=== PATIENT | female | born 1950 | race Hispanic/Latino ===

== ENCOUNTER → 2018-07-04 | Outpatient (CLI) | payer MEDICARE ==
[~2018-07-04] MED LIST: ASPI-1005 PO; FOLI-114 PO; GLYB1.253 PO; LISI-617 PO; METF-445 PO; METO25 PO; METO5TAB87 PO; SIMV20TA6 PO
== END | disposition home or self-care (01) ==
LOC: RAH 11:32
PROVIDERS: ATTEND Family Medicine
DX: I65.23 Occlusion and stenosis of bilateral carotid arteries (principal); R42 Dizziness and giddiness
CPT/HCPCS: 93880

== ENCOUNTER → 2020-01-22 | Outpatient (CLI) | payer MEDICARE ==
[~2020-01-22] MED LIST changes: +HONEY 1 APPL/ML TUBE TP ONE; +LIDOCAINE HCL 4% LTA SOL 4 ML VIAL TP ONE; +SIMV-43 PO; -SIMV20TA6 PO
[2020-01-22 13:05] VITALS: BP 126/63
== END | disposition home or self-care (01) ==
LOC: WHH 10:50
PROVIDERS: ATTEND Surgery
DX: E11.622 Type 2 diabetes mellitus with other skin ulcer (principal); I83.013 Varicose veins of right lower extremity with ulcer of ankle; I70.233 Atherosclerosis of native arteries of right leg with ulceration of ankle; L97.312 Non-pressure chronic ulcer of right ankle with fat layer exposed; I83.023 Varicose veins of left lower extremity with ulcer of ankle; I70.243 Atherosclerosis of native arteries of left leg with ulceration of ankle; L97.321 Non-pressure chronic ulcer of left ankle limited to breakdown of skin; E11.51 Type 2 diabetes mellitus with diabetic peripheral angiopathy without gangrene; I10 Essential (primary) hypertension; E78.5 Hyperlipidemia, unspecified; Z86.73 Personal history of transient ischemic attack (TIA), and cerebral infarction without residual deficits; Z98.49 Cataract extraction status, unspecified eye
CPT/HCPCS: 11042

== ENCOUNTER → 2020-01-29 | Outpatient (CLI) | payer MEDICARE ==
[~2020-01-29] MED LIST changes: -HONEY 1 APPL/ML TUBE TP ONE; -LIDOCAINE HCL 4% LTA SOL 4 ML VIAL TP ONE; +LIDOCAINE/PRILOCAINE CREAM 5GM TUBE TP ONE
[2020-01-29 14:43] VITALS: BP 144/68
== END | disposition home or self-care (01) ==
LOC: WHH 10:15
PROVIDERS: ATTEND Surgery
DX: E11.622 Type 2 diabetes mellitus with other skin ulcer (principal); I83.013 Varicose veins of right lower extremity with ulcer of ankle; I70.233 Atherosclerosis of native arteries of right leg with ulceration of ankle; L97.312 Non-pressure chronic ulcer of right ankle with fat layer exposed; I83.023 Varicose veins of left lower extremity with ulcer of ankle; I70.243 Atherosclerosis of native arteries of left leg with ulceration of ankle; L97.821 Non-pressure chronic ulcer of other part of left lower leg limited to breakdown of skin; E11.51 Type 2 diabetes mellitus with diabetic peripheral angiopathy without gangrene; I10 Essential (primary) hypertension; E78.5 Hyperlipidemia, unspecified; Z86.73 Personal history of transient ischemic attack (TIA), and cerebral infarction without residual deficits; Z98.49 Cataract extraction status, unspecified eye
CPT/HCPCS: A6021; G0463; J3490; 99214

== ENCOUNTER → 2020-02-05 | Outpatient (CLI) | payer MEDICARE ==
[~2020-02-05] MED LIST changes: +LIDOCAINE HCL 4% LTA SOL 4 ML VIAL TP ONE; -LIDOCAINE/PRILOCAINE CREAM 5GM TUBE TP ONE
[2020-02-05 12:05] VITALS: BP 105/52
== END | disposition home or self-care (01) ==
LOC: WHH 10:15
PROVIDERS: ATTEND Surgery
DX: E11.622 Type 2 diabetes mellitus with other skin ulcer (principal); I83.013 Varicose veins of right lower extremity with ulcer of ankle; I70.233 Atherosclerosis of native arteries of right leg with ulceration of ankle; L97.312 Non-pressure chronic ulcer of right ankle with fat layer exposed; I83.023 Varicose veins of left lower extremity with ulcer of ankle; I70.243 Atherosclerosis of native arteries of left leg with ulceration of ankle; L97.821 Non-pressure chronic ulcer of other part of left lower leg limited to breakdown of skin; E11.51 Type 2 diabetes mellitus with diabetic peripheral angiopathy without gangrene; I10 Essential (primary) hypertension; E78.5 Hyperlipidemia, unspecified; Z86.73 Personal history of transient ischemic attack (TIA), and cerebral infarction without residual deficits; Z98.49 Cataract extraction status, unspecified eye
CPT/HCPCS: 11042; A6022; A6197

== ENCOUNTER → 2020-02-06 | Outpatient (CLI) | payer MEDICARE ==
[~2020-02-06] MED LIST changes: -LIDOCAINE HCL 4% LTA SOL 4 ML VIAL TP ONE
[2020-02-06 09:23] VITALS: BP 108/62
== END | disposition home or self-care (01) ==
LOC: WHH 08:15
PROVIDERS: ATTEND Surgery
DX: E11.622 Type 2 diabetes mellitus with other skin ulcer (principal); I83.013 Varicose veins of right lower extremity with ulcer of ankle; I70.233 Atherosclerosis of native arteries of right leg with ulceration of ankle; L97.311 Non-pressure chronic ulcer of right ankle limited to breakdown of skin; E11.51 Type 2 diabetes mellitus with diabetic peripheral angiopathy without gangrene; I10 Essential (primary) hypertension; E78.5 Hyperlipidemia, unspecified; Z86.73 Personal history of transient ischemic attack (TIA), and cerebral infarction without residual deficits; Z98.49 Cataract extraction status, unspecified eye
CPT/HCPCS: 93923

== ENCOUNTER → 2020-02-10 | Outpatient (CLI) | payer MEDICARE, OTHER ==
[~2020-02-10] MED LIST changes: +ASPI-1443 PO; +ATOR10TA69 PO; +EXEN2PEN SQ; +GABA300C PO; +IBUP-2070 PO; +INSU100I21 SQ; +LEVO500T2 PO; +LOSA50TA64 PO; +METF-446 PO; +PIOG45TA64 PO; +RIVA2.5T PO; +TRAM50TA4 PO
== END | disposition home or self-care (01) ==
LOC: WHH 13:00
PROVIDERS: ATTEND Surgery
DX: E11.622 Type 2 diabetes mellitus with other skin ulcer (principal); I83.013 Varicose veins of right lower extremity with ulcer of ankle; L97.311 Non-pressure chronic ulcer of right ankle limited to breakdown of skin; I83.023 Varicose veins of left lower extremity with ulcer of ankle; L97.321 Non-pressure chronic ulcer of left ankle limited to breakdown of skin; E11.621 Type 2 diabetes mellitus with foot ulcer; I83.015 Varicose veins of right lower extremity with ulcer other part of foot; L97.511 Non-pressure chronic ulcer of other part of right foot limited to breakdown of skin; E11.51 Type 2 diabetes mellitus with diabetic peripheral angiopathy without gangrene; I10 Essential (primary) hypertension; E78.5 Hyperlipidemia, unspecified; Z98.49 Cataract extraction status, unspecified eye; Z86.73 Personal history of transient ischemic attack (TIA), and cerebral infarction without residual deficits
CPT/HCPCS: 93922

== ENCOUNTER → 2020-02-19 | Outpatient (CLI) | payer MEDICARE, OTHER ==
[~2020-02-19] MED LIST changes: +GADODIAMIDE 10 MMOL/20 ML VIAL IV ONE; +HONEY 1 APPL/ML TUBE TP ONE; +LIDOCAINE HCL 2% JELLY 5 ML TP ONE
[2020-02-19 13:51] VITALS: BP 120/58
== END | disposition home or self-care (01) ==
LOC: WHH 10:30
PROVIDERS: ATTEND Surgery
DX: E11.622 Type 2 diabetes mellitus with other skin ulcer (principal); I83.013 Varicose veins of right lower extremity with ulcer of ankle; I70.233 Atherosclerosis of native arteries of right leg with ulceration of ankle; L97.312 Non-pressure chronic ulcer of right ankle with fat layer exposed; I83.023 Varicose veins of left lower extremity with ulcer of ankle; I70.243 Atherosclerosis of native arteries of left leg with ulceration of ankle; L97.321 Non-pressure chronic ulcer of left ankle limited to breakdown of skin; E11.621 Type 2 diabetes mellitus with foot ulcer; L97.511 Non-pressure chronic ulcer of other part of right foot limited to breakdown of skin; L98.491 Non-pressure chronic ulcer of skin of other sites limited to breakdown of skin; E11.51 Type 2 diabetes mellitus with diabetic peripheral angiopathy without gangrene; I10 Essential (primary) hypertension; E78.5 Hyperlipidemia, unspecified; Z98.49 Cataract extraction status, unspecified eye; Z86.73 Personal history of transient ischemic attack (TIA), and cerebral infarction without residual deficits
CPT/HCPCS: 11042; A6021; A9579

== ENCOUNTER → 2020-02-20 | Outpatient (CLI) | payer OTHER ==
[~2020-02-20] MED LIST changes: -ASPI-1443 PO; -GABA300C PO; -HONEY 1 APPL/ML TUBE TP ONE; -IBUP-2070 PO; -LIDOCAINE HCL 2% JELLY 5 ML TP ONE; -RIVA2.5T PO
== END | disposition home or self-care (01) ==
LOC: RAH 09:21
PROVIDERS: ATTEND Surgery
DX: I83.018 Varicose veins of right lower extremity with ulcer other part of lower leg (principal); E11.621 Type 2 diabetes mellitus with foot ulcer; L97.819 Non-pressure chronic ulcer of other part of right lower leg with unspecified severity; L97.519 Non-pressure chronic ulcer of other part of right foot with unspecified severity
CPT/HCPCS: 73720; A9579

== ENCOUNTER → 2020-02-26 | Outpatient (CLI) | payer MEDICARE, OTHER ==
[~2020-02-26] MED LIST changes: -ASPI-1005 PO; -ATOR10TA69 PO; -EXEN2PEN SQ; -FOLI-114 PO; -GADODIAMIDE 10 MMOL/20 ML VIAL IV ONE; -GLYB1.253 PO; -INSU100I21 SQ; -LEVO500T2 PO; +LIDOCAINE HCL 2% JELLY 5 ML TP ONE; -LISI-617 PO; -LOSA50TA64 PO; -METF-445 PO; -METF-446 PO; -METO25 PO; -METO5TAB87 PO; -PIOG45TA64 PO; -SIMV-43 PO; -TRAM50TA4 PO
[2020-02-26 12:15] VITALS: BP 157/88; PULSE 78; RESP 18; TEMP 98.9
== END | disposition home or self-care (01) ==
LOC: WHH 10:30
PROVIDERS: ATTEND Surgery
DX: E11.622 Type 2 diabetes mellitus with other skin ulcer (principal); I83.013 Varicose veins of right lower extremity with ulcer of ankle; I70.233 Atherosclerosis of native arteries of right leg with ulceration of ankle; L97.311 Non-pressure chronic ulcer of right ankle limited to breakdown of skin; E11.621 Type 2 diabetes mellitus with foot ulcer; I83.015 Varicose veins of right lower extremity with ulcer other part of foot; I70.238 Atherosclerosis of native arteries of right leg with ulceration of other part of lower leg; L97.512 Non-pressure chronic ulcer of other part of right foot with fat layer exposed; E11.51 Type 2 diabetes mellitus with diabetic peripheral angiopathy without gangrene; I10 Essential (primary) hypertension; E78.5 Hyperlipidemia, unspecified; Z86.73 Personal history of transient ischemic attack (TIA), and cerebral infarction without residual deficits; Z98.49 Cataract extraction status, unspecified eye
CPT/HCPCS: 11042; A6196

== ENCOUNTER 2020-03-02 15:40 | Inpatient (IN) | payer OTHER ==
[~2020-03-02] VITALS: Ht 157.5 cm; Wt 69.9 kg
[2020-03-02] MEDS ORDERED: ZOSYN 3.375GM+NS 50ML 50 ML IV ONE (16:30)
[2020-03-02] MEDS ORDERED: SODIUM CHLORIDE 0.9% 1000ML 1,000 ML IV ONE (16:30)
[2020-03-02] MEDS ORDERED: VANCOMYCIN 1.5 GM in SODIUM CHLORIDE 0.9% 250 ML IV SCH (18:15)
[2020-03-02] MEDS ORDERED: COMPOUND IV REFRIGERATED 1 EACH IVSOLN MISC PRN (18:15)
[2020-03-02] MEDS ORDERED: VANCOMYCIN PROTOCOL PER PHARMACY IV SCH (18:15)
[2020-03-02] MEDS ORDERED: GLUCAGON 1MG KIT 1 MG ML IM PRN (18:30)
[2020-03-02] MEDS ORDERED: DEXTROSE 50%-WATER 50 ML DISP.SYRIN IV PRN (18:30)
[2020-03-03] MEDS ORDERED: ZOSYN 3.375GM+NS 50ML 50 ML IV SCH
[2020-03-03] MEDS ORDERED: ZOSYN 3.375GM+NS 50ML 50 ML IV ONE (03:11)
[2020-03-03] MEDS: VANCOMYCIN 1GM+NS 250ML 250 ML IV SCH ×2 (06:00→18:50)
[2020-03-03] MEDS: INSULIN R PO SS1 SQ SCH ×4 (07:30→23:50)
--- NOTE | 2020-03-03 08:30 | NUR ---
ADMISSION . PT AAO X 3 REVIEW PLAN OF CARE AND ORDERS . WOUND TO HER RT FOOT . PICTURES DONE. DRSG DONE TO HER RT FOOT, AND FALL RISK AND CALL LIGHT IN R EACH.
[2020-03-03 09:58] VITALS: BP 140/56; PULSE 87; RESP 17; TEMP 98.6
[2020-03-03] MEDS: HYDROMORPHONE HCL 0.5 MG/0.5 ML ML IVP PRN ×2 (10:49→23:27)
[2020-03-03] MEDS ORDERED: HYDRALAZINE HCL 20 MG/ML VIAL IV PRN (11:30)
[2020-03-03] MEDS ORDERED: LACTULOSE 20 GM/30 ML UDCUP PO PRN (11:30)
[2020-03-03] MEDS ORDERED: LABETALOL 20 MG/4 ML DISP.SYRIN IV PRN (11:30)
[2020-03-03] MEDS ORDERED: ACETAMINOPHEN 325 MG TAB PO PRN (11:30)
[2020-03-03 12:19] VITALS: BP 135/56; PULSE 85; RESP 16; TEMP 97.3
[2020-03-03] MEDS: ZOSYN 3.375GM+NS 50ML 50 ML IV SCH ×2 (13:54→22:38)
--- NOTE | 2020-03-03 15:02 | NUR ---
advised by Anuradha [place] pending MRI report for POC/status determination Addendum: 03/03/20 at 1505 by JOSIE SR RN CM Amended: Links added.
--- NOTE | 2020-03-03 17:05 | NUR ---
[facility] CM spoke to pt's daughter Corinne Laughlin discussed dc plans. Pt is alejandro-ind prior to admission, lives at home with spouse and daughter. Pt has a walker, cane, HH daily for woundcare unable to [employer] company name, goes to [facility] w/Dr Springer every . Denies any other equipments/services. Feels safe to go back home. Agreeable for placement only if necessary, telephone consent obtained ILIANA adela [place]. DC plan to home vs SNF. CM to cont to follow up. Addendum: 03/03/20 at 1709 by JAMIL BECERRA LVN CM Amended: Links added.
[2020-03-03 17:15] VITALS: BP 131/64; PULSE 91; RESP 18; TEMP 98.8
--- NOTE | 2020-03-03 18:39 | NUR ---
CARDIOGIST CONSULT DR. Kumar GIMENEZ CONSULTS FOR PVD
--- NOTE | 2020-03-03 19:00 | NUR ---
DR. DIEHL HERE , FOR RT FOOT ASSESSMENT . REVIEW FOOT .AND SPOKE WITH PT. REGARDING PLAN OF CARE, WILL NEED FOR THE SCRAP CRUSHER . IN PUT OF HER RT FOOT/ LEG CIRCULATION . AND CARE. RISK REVIEW AND QUESTIONS ANSWER . RT FOOT 2ND AND 3RD FOOT . INNER AREA BLACKISH COLOR . NOTED .
[2020-03-03 19:40] VITALS: BP 139/63; PULSE 102; RESP 17; TEMP 98.8
[2020-03-03] MEDS: HEPARIN SODIUM 5000UNIT/ML 1ML VIAL SQ SCH (21:00)
[2020-03-03] MEDS: LEVEMIR PO SCH (21:00)
[2020-03-03 23:46] VITALS: BP 111/72; PULSE 97; RESP 17; TEMP 98
[2020-03-04 03:40] VITALS: BP 127/60; PULSE 84; RESP 17; TEMP 98.1
[2020-03-04] MEDS: ZOSYN 3.375GM+NS 50ML 50 ML IV SCH ×3 (04:32→19:47)
[2020-03-04] MEDS: HYDROMORPHONE HCL 0.5 MG/0.5 ML ML IVP PRN ×3 (05:21→18:27)
[2020-03-04] MEDS: VANCOMYCIN 1GM+NS 250ML 250 ML IV SCH ×2 (06:17→18:02)
[2020-03-04] MEDS: INSULIN R PO SS1 SQ SCH ×4 (07:30→21:00)
[2020-03-04 07:50] VITALS: BP 121/59; PULSE 87; RESP 18; TEMP 98
--- NOTE | 2020-03-04 08:50 | NUR ---
DR. Kumar GIMENEZ CALLED AND UPDATE PT CONSULTATION . AND ADMISSION DATA . STATED WILL CALL BACK REGARDING INFORMATION OF PT . DATA IN HIS OFFICE,
--- NOTE | 2020-03-04 09:15 | NUR ---
DR. Kumar GIMENEZ CALLED BACK REGARDING CONSULTION OF HER RT FOOT. STATED . THAT THE PT . NEEDS TO COME TO MY OFFICE ,AND WOULD NEED TO BE ADMITTED AT [facility].DUE TO SOME EQUIP. HE NEEDS TO HELP HER RT FOOT. OR GO BACK TO [facility] . WHERE THEY DID HER RT FOOT PROCEDURE. WILL DIRECT DATA TO DR. IRVIN ,AND [facility]
[2020-03-04] MEDS: ATORVASTATIN CALCIUM 10 MG TABLET PO SCH (10:28)
[2020-03-04] MEDS: LOSARTAN 50 MG TABLET PO SCH (10:28)
[2020-03-04] MEDS: PANTOPRAZOLE SODIUM 40 MG TABLET.DR PO SCH (10:28)
[2020-03-04] MEDS: HEPARIN SODIUM 5000UNIT/ML 1ML VIAL SQ SCH ×2 (10:41→19:48)
--- NOTE | 2020-03-04 11:00 | NUR ---
DR. Law IRVIN HERE AND UPDATE OF DR. Deacon GIMENEZ CONSULATION TO HER RT FOOT . . PLAN OF CARE. PT NEEDS A PROCEDURE THAT HE CAN ONLY DO AT [facility] OR DIRECT HER CARE BACK TO THE [facility] TO THE DR. THAT DID HER RT FOOT PROCEDURE FOR CARE, SPOKE WITH PT ,REGARDING CONT PLAN OF CARE FOR HER RT FOOT. . AND WILL NOTIFY DR. DIEHL AND [facility]. REGARDING HER CARE
[2020-03-04 11:15] VITALS: BP 96/75; PULSE 89; RESP 18; TEMP 98.3
--- NOTE | 2020-03-04 14:05 | NUR ---
DR. DIEHL CALLED UPDATE OF PT .STATUS ,REGARDING THE CONSULATIONS OF DR. Kumar LONDONO IF POSSIBLE AND UNABLE TO DETERMINE CARE FROM DR. Kumar GIMENEZ. . RECOMMANDATION FOR A THORACIC / VASCULAR SURGEON. GERI. NOTIFY [facility] OF RECOMMANDATIONS
--- NOTE | 2020-03-04 14:35 | NUR ---
PLACED A CALL TO FLAVIO CULVER NP. FOR DR [facility] , TO UPDATE DR. DIEHL RECOMMANDATIONS .NO ANSWER,
[2020-03-04 15:48] VITALS: BP 125/57; PULSE 89; RESP 18; TEMP 99.6
--- NOTE | 2020-03-04 16:32 | NUR ---
161 patient signed IM Letter, I faxed IM Letter to [phone] and placed in chart under consent tab.
[2020-03-04 19:25] VITALS: BP 126/61; PULSE 91; RESP 17; TEMP 98.9
[2020-03-04] MEDS: LEVEMIR PO SCH (19:48)
--- NOTE | 2020-03-04 20:33 | NUR ---
paged doctor julio and he said the he cannot see the patient because he is going to be out of town for the weekend.
--- NOTE | 2020-03-04 20:35 | NUR ---
texted liliana webber about doctor kim's response and she said to consult management about this issue in the morning. will let my director, omkar worthington in the am. spoke with warehouse administrator radha and she said that patient cannot go home like that as per doctor salcido's recommendations. she said to speak to omkar worthington in the am.
[2020-03-04 23:46] VITALS: BP 163/80; PULSE 93; RESP 17; TEMP 98.4
[2020-03-05] MEDS: HYDROMORPHONE HCL 0.5 MG/0.5 ML ML IVP PRN ×3 (00:13→23:00)
[2020-03-05 03:30] VITALS: BP 128/57; PULSE 80; RESP 17; TEMP 98.9
[2020-03-05] MEDS: ZOSYN 3.375GM+NS 50ML 50 ML IV SCH ×3 (03:40→20:28)
[2020-03-05] MEDS: INSULIN R PO SS1 SQ SCH ×4 (05:45→20:29)
[2020-03-05] MEDS: VANCOMYCIN 1GM+NS 250ML 250 ML IV SCH ×2 (07:08→17:05)
[2020-03-05 08:00] VITALS: BP 135/64; PULSE 92; RESP 18; TEMP 97.7
[2020-03-05] MEDS: PANTOPRAZOLE SODIUM 40 MG TABLET.DR PO SCH (09:19)
[2020-03-05] MEDS: ATORVASTATIN CALCIUM 10 MG TABLET PO SCH (09:19)
[2020-03-05] MEDS: LOSARTAN 50 MG TABLET PO SCH (09:19)
[2020-03-05] MEDS: HEPARIN SODIUM 5000UNIT/ML 1ML VIAL SQ SCH ×2 (09:24→20:29)
[2020-03-05 11:43] VITALS: BP 131/69; PULSE 88; RESP 17; TEMP 98.3
--- NOTE | 2020-03-05 13:25 | NUR ---
DR. GIMENEZ CAME TO SEE PT AT BEDSIDE WILL DO PERIHERNIAL ANGIOGRAM TO RT. FOOT TOMORROW. ASLO WANTED DR. FAY TO BE CONSULTED. NPO AFTER MN
[2020-03-05 16:00] VITALS: BP 133/66; PULSE 88; RESP 18; TEMP 98.5
--- NOTE | 2020-03-05 19:02 | NUR ---
NYA FAY IS AWARE OF CONSULT WILL BE SEEING PATIENT TODAY.
[2020-03-05 19:55] VITALS: BP 121/55; PULSE 91; RESP 19; TEMP 98.4
[2020-03-05] MEDS: LEVEMIR PO SCH (21:00)
[2020-03-05 23:42] VITALS: BP 134/72; PULSE 98; RESP 19; TEMP 99.2
[2020-03-06 04:09] VITALS: BP 136/66; PULSE 89; RESP 18; TEMP 98.1
[2020-03-06] MEDS: HYDROMORPHONE HCL 0.5 MG/0.5 ML ML IVP PRN ×3 (05:25→20:56)
[2020-03-06] MEDS: ZOSYN 3.375GM+NS 50ML 50 ML IV SCH (05:25)
[2020-03-06] MEDS: VANCOMYCIN 1GM+NS 250ML 250 ML IV SCH (06:17)
[2020-03-06] MEDS: INSULIN R PO SS1 SQ SCH ×4 (06:18→20:45)
[2020-03-06] MEDS: HEPARIN SODIUM 5000UNIT/ML 1ML VIAL SQ SCH ×2 (09:00→20:44)
[2020-03-06 09:19] VITALS: BP 128/60; PULSE 94; RESP 18; TEMP 98.4
[2020-03-06] MEDS: CEFEPIME HCL 1 GM VIAL IVP SCH ×2 (09:25→20:42)
[2020-03-06] MEDS: PANTOPRAZOLE SODIUM 40 MG TABLET.DR PO SCH (09:25)
[2020-03-06] MEDS: ATORVASTATIN CALCIUM 10 MG TABLET PO SCH (09:25)
[2020-03-06] MEDS: SODIUM CHLORIDE 0.9% 1000ML 1,000 ML IV SCH (11:27)
[2020-03-06 11:30] VITALS: BP 139/68; PULSE 86; RESP 18; TEMP 98
[2020-03-06] MEDS: METRONIDAZOLE 500MG/100ML BAG 100 ML IV SCH ×2 (13:27→20:56)
[2020-03-06 16:44] VITALS: BP 141/72; PULSE 86; RESP 16; TEMP 99.1
[2020-03-06] MEDS: ACETYLCYSTEINE 20% 200MG/ML 4ML VIAL PO SCH (20:42)
[2020-03-06 20:48] VITALS: BP 136/61; PULSE 71; RESP 18; TEMP 99.7
[2020-03-06] MEDS: LEVEMIR PO SCH (21:00)
[2020-03-06 23:49] VITALS: BP 122/57; PULSE 85; RESP 18; TEMP 98.7
[2020-03-07 03:52] VITALS: BP 128/65; PULSE 88; RESP 19; TEMP 101.1
[2020-03-07] MEDS: INSULIN R PO SS1 SQ SCH ×4 (07:30→21:00)
[2020-03-07] MEDS: METRONIDAZOLE 500MG/100ML BAG 100 ML IV SCH ×3 (07:36→21:31)
[2020-03-07] MEDS: ACETYLCYSTEINE 20% 200MG/ML 4ML VIAL PO SCH (08:25)
[2020-03-07] MEDS: HEPARIN SODIUM 5000UNIT/ML 1ML VIAL SQ SCH ×2 (08:25→21:30)
[2020-03-07] MEDS: FOLIC ACID/VITAMIN B COMP W-C 1 CAP TAB PO SCH (08:25)
[2020-03-07] MEDS: PANTOPRAZOLE SODIUM 40 MG TABLET.DR PO SCH (08:25)
[2020-03-07] MEDS: CEFEPIME HCL 1 GM VIAL IVP SCH ×2 (08:26→21:29)
[2020-03-07] MEDS: ATORVASTATIN CALCIUM 10 MG TABLET PO SCH (08:28)
[2020-03-07 08:36] VITALS: BP 134/61; PULSE 83; RESP 20; TEMP 98.6
--- NOTE | 2020-03-07 10:44 | NUR ---
DR MCARTHUR PER DR. MCARTHUR CREATINE TO HIGH PERIPHERAL ANGIO CANCELED UNTIL DR. OSORIO CLEARS PATIENT.
[2020-03-07 12:07] VITALS: BP 141/72; PULSE 84; RESP 20; TEMP 98.1
[2020-03-07] MEDS: HYDROMORPHONE HCL 0.5 MG/0.5 ML ML IVP PRN (13:59)
[2020-03-07 19:09] VITALS: BP 144/66; PULSE 89; RESP 19; TEMP 98
[2020-03-07 19:30] VITALS: BP 140/66; PULSE 87; RESP 18; TEMP 98.1
[2020-03-07] MEDS: LEVEMIR PO SCH (21:00)
[2020-03-07] MEDS: ZOLPIDEM TARTRATE 5 MG TAB PO PRN (21:29)
[2020-03-07] MEDS: SODIUM CHLORIDE 0.9% 1000ML 1,000 ML IV SCH (21:29)
[2020-03-07 23:38] VITALS: BP 135/63; PULSE 86; RESP 18; TEMP 98.4
[2020-03-08] MEDS: SODIUM CHLORIDE 0.9% 1000ML 1,000 ML IV SCH ×2 (01:38→13:09)
[2020-03-08 04:00] VITALS: BP 140/61; PULSE 83; RESP 18; TEMP 98.5
[2020-03-08] MEDS: METRONIDAZOLE 500MG/100ML BAG 100 ML IV SCH ×3 (05:18→21:38)
[2020-03-08] MEDS: HYDROMORPHONE HCL 0.5 MG/0.5 ML ML IVP PRN ×3 (05:18→21:38)
[2020-03-08] MEDS: INSULIN R PO SS1 SQ SCH ×4 (06:21→21:00)
[2020-03-08] MEDS: CEFEPIME HCL 1 GM VIAL IVP SCH ×2 (08:17→21:19)
[2020-03-08] MEDS: PANTOPRAZOLE SODIUM 40 MG TABLET.DR PO SCH (08:17)
[2020-03-08] MEDS: FOLIC ACID/VITAMIN B COMP W-C 1 CAP TAB PO SCH (08:17)
[2020-03-08] MEDS: ATORVASTATIN CALCIUM 10 MG TABLET PO SCH (08:17)
[2020-03-08] MEDS: HEPARIN SODIUM 5000UNIT/ML 1ML VIAL SQ SCH ×2 (08:32→21:21)
[2020-03-08 09:18] VITALS: BP 132/64; PULSE 90; RESP 16; TEMP 98.6
--- NOTE | 2020-03-08 10:00 | NUR ---
DR. OSORIO IN TO SEE PT. ORDERS GIVEN AND ENTERED.
--- NOTE | 2020-03-08 13:30 | NUR ---
MEDICATED FOR PAIN TO RT. FOOT.
[2020-03-08 13:31] VITALS: BP 138/71; PULSE 85; RESP 16; TEMP 98.4
--- NOTE | 2020-03-08 15:38 | NUR ---
DRESSING TO RT. FOOT CHANGED, 3RD AND 4TH TOES BLACK AND COLD TO TOUCH, CLEANED AND PAINTED WITH BETADINE AND COVERED WITH GAUZE AND WRAPPED WITH KERLIX.
--- NOTE | 2020-03-08 18:07 | NUR ---
SLEEPING SOUNDLY AT THIS TIME.
[2020-03-08 19:55] VITALS: BP_SYST 138; BP_SYST 189; BP_DIAS 68; BP_DIAS 87; PULSE 77; PULSE 88; RESP 18; RESP 20; TEMP 97.9; TEMP 98.2
[2020-03-08 20:00] VITALS: BP 152/64; PULSE 71; RESP 18; TEMP 99
[2020-03-08] MEDS: LEVEMIR PO SCH (21:00)
[2020-03-09] VITALS (10 sets, daily range): BP systolic 125–177; BP diastolic 62–90; PULSE 84–97; RESP 18; TEMP 97.9–99.2
[2020-03-09] MEDS: ZOLPIDEM TARTRATE 5 MG TAB PO PRN (00:03)
[2020-03-09] MEDS: HYDROMORPHONE HCL 0.5 MG/0.5 ML ML IVP PRN (05:30)
[2020-03-09] MEDS: METRONIDAZOLE 500MG/100ML BAG 100 ML IV SCH ×3 (05:30→21:56)
--- NOTE | 2020-03-09 05:30 | NUR ---
DILAUDID Pt medicated with dilaudid for c/o pain to rt foot.
[2020-03-09] MEDS: SODIUM CHLORIDE 0.9% 1000ML 1,000 ML IV SCH ×3 (05:42→18:14)
[2020-03-09] MEDS: INSULIN R PO SS1 SQ SCH ×4 (05:54→21:00)
[2020-03-09] MEDS: ONDANSETRON HCL 4 MG/2 ML VIAL IVP PRN ×2 (05:58→10:24)
--- NOTE | 2020-03-09 05:58 | NUR ---
NAUSEA Pt medicated with zofran for nausea.
[2020-03-09] MEDS: HEPARIN SODIUM 5000UNIT/ML 1ML VIAL SQ SCH ×2 (09:00→21:55)
[2020-03-09] MEDS: FOLIC ACID/VITAMIN B COMP W-C 1 CAP TAB PO SCH (10:24)
[2020-03-09] MEDS: PANTOPRAZOLE SODIUM 40 MG TABLET.DR PO SCH (10:24)
[2020-03-09] MEDS: ATORVASTATIN CALCIUM 10 MG TABLET PO SCH (10:24)
[2020-03-09] MEDS: CEFEPIME HCL 1 GM VIAL IVP SCH ×2 (10:26→21:56)
[2020-03-09] MEDS ORDERED: HEPARIN SODIUM 1000UNIT/ML 10ML VIAL ONE ×2 (12:49→15:33)
[2020-03-09] MEDS ORDERED: IODIXANOL 320 MG/ML 100 ML VIAL ONE (12:49)
[2020-03-09] MEDS ORDERED: LIDOCAINE HCL 2% 20ML ONE (12:50)
[2020-03-09] MEDS ORDERED: FENTANYL CITRATE PF 50 MCG/1 ML 2ML VIAL ONE (13:39)
[2020-03-09] MEDS ORDERED: MIDAZOLAM HCL 1 MG/ML 2ML VIAL ONE (13:39)
[2020-03-09] MEDS ORDERED: NITROGLYCERIN 2 MG/VIAL VIAL IV ONE (14:29)
[2020-03-09] MEDS ORDERED: ASPIRIN 325MG EC TAB 325 MG TABLET.DR PO ONE (15:54)
[2020-03-09] MEDS ORDERED: CLOPIDOGREL BISULFATE 300 MG TAB ONE (15:54)
[2020-03-09] MEDS ORDERED: SODIUM CHLORIDE 0.9% 1000ML 1,000 ML IV SCH (16:04)
[2020-03-09] MEDS ORDERED: ACETYLCYSTEINE 20% 200MG/ML 4ML VIAL ONE (18:53)
[2020-03-09] MEDS: LEVEMIR PO SCH (21:00)
[2020-03-09] MEDS: ACETYLCYSTEINE 600 MG CAPSULE PO SCH (21:56)
[2020-03-10] VITALS (19 sets, daily range): BP systolic 143–174; BP diastolic 66–88; PULSE 78–93; RESP 13–20; TEMP 97–99
[2020-03-10] MEDS: METRONIDAZOLE 500MG/100ML BAG 100 ML IV SCH ×4 (04:37→22:13)
[2020-03-10] MEDS: INSULIN R PO SS1 SQ SCH ×4 (07:30→21:00)
[2020-03-10] MEDS: SODIUM CHLORIDE 0.9% 1000ML 1,000 ML IV SCH ×2 (08:05→21:25)
[2020-03-10] MEDS: HEPARIN SODIUM 5000UNIT/ML 1ML VIAL SQ SCH ×2 (09:00→20:17)
[2020-03-10] MEDS: ATORVASTATIN CALCIUM 10 MG TABLET PO SCH (09:00)
[2020-03-10] MEDS: ACETYLCYSTEINE 600 MG CAPSULE PO SCH ×2 (09:00→20:16)
[2020-03-10] MEDS: FOLIC ACID/VITAMIN B COMP W-C 1 CAP TAB PO SCH (09:00)
[2020-03-10] MEDS: ASPIRIN 81 MG EC TAB PO SCH (09:00)
[2020-03-10] MEDS: CLOPIDOGREL BISULFATE 75 MG TAB PO SCH (09:00)
[2020-03-10] MEDS: PANTOPRAZOLE SODIUM 40 MG TABLET.DR PO SCH (09:00)
[2020-03-10] MEDS: CEFEPIME HCL 1 GM VIAL IVP SCH ×2 (09:04→20:15)
[2020-03-10] MEDS ORDERED: LIDOCAINE HCL 1% 20 ML VIAL ONE (11:44)
[2020-03-10] MEDS ORDERED: BUPIVACAINE/PF 0.5% 30ML VIAL ONE (11:44)
[2020-03-10] MEDS ORDERED: MIDAZOLAM HCL 1 MG/ML 2ML VIAL ONE (11:54)
[2020-03-10] MEDS ORDERED: FENTANYL CITRATE PF 50 MCG/1 ML 2ML VIAL ONE (11:54)
--- NOTE | 2020-03-10 12:55 | NUR ---
REPORT RECEIVED FROM PACU RECEIVED REPORT PATIENT S/P AMPUTATION OF 3RD AND 4TH TOE UNDER MAC AND LOCAL ANESTHESIA VS SR 80 13 R, TEMP 98.5 B/P 155/73 , O2 SATS 99 % ON ROOM AIR ORDERS FOR WOUND CARE EVERY OTHER DAY AND TO FOLLOW-UP WITH WOUND CARE CENTER AFTER DISCHARGE. PT TO GET PATIENT UP 4 TIMES A DAY AWAITING PATIENT ARRIVAL ON UNIT.
--- NOTE | 2020-03-10 13:15 | NUR ---
ASSESS X 1 15MIN PT IN BED BROUGHT FROM PACU. PT IS A/A X 3, DRESSING IS 4X4 WRAPPED WITH KERLIX IS DRY AND INTACT. RIGHT PD IS PRESENT. NO PAIN AT THIS TIME. WILL CONTINUE TO MONITOR.
--- NOTE | 2020-03-10 13:30 | NUR ---
ASSESS X 2 15 MIN PATIENT V/S STABLE NO COMPLICATION WITH DRESSING, DP ARE PRESENT, NO PAIN COMPLAINTS TO THE RIGHT FOOT. WILL CONTINUE TO MONITOR
--- NOTE | 2020-03-10 13:45 | NUR ---
ASSESS X 3 15 MIN V/S STABLE, PT A/A X 3 NO PAIN DP PRESENT DRESSING DRY AND INTACT
--- NOTE | 2020-03-10 14:00 | NUR ---
ASSESS X 4 15MIN PT HAS NO COMPLAINTS OF PAIN, V/S STABLE WILL CONTINUE TO MONITOR
--- NOTE | 2020-03-10 14:30 | NUR ---
ASSESS X 1, 30 MIN PT IS ON THE PHONE TALKING TO FAMILY, NO COMPLAINS OF PAIN, DP PRESENT, DRESSING DRY AND INTACT
--- NOTE | 2020-03-10 15:00 | NUR ---
ASSESS X 2 30MIN PT CONTINUE TO DO WELL, WILL CONTINUE TO MONITOR
--- NOTE | 2020-03-10 16:00 | NUR ---
ASSESS X 1HR NO COMPLICATIONS TO SITE PD PRESENT TO RIGHT FOOT, WARM, V/S STABLE A/A X 3 WILL CONTINUE TO MONITOR
[2020-03-10] MEDS: HYDROMORPHONE HCL 0.5 MG/0.5 ML ML IVP PRN (20:18)
[2020-03-10] MEDS: LEVEMIR PO SCH (20:31)
[2020-03-11] VITALS (7 sets, daily range): BP systolic 140–153; BP diastolic 71–77; PULSE 85–92; RESP 18–20; TEMP 97.7–98.9
[2020-03-11] MEDS: SODIUM CHLORIDE 0.9% 1000ML 1,000 ML IV SCH ×4 (01:29→22:50)
[2020-03-11] MEDS: HYDROMORPHONE HCL 0.5 MG/0.5 ML ML IVP PRN ×2 (03:27→20:52)
[2020-03-11] MEDS: METRONIDAZOLE 500MG/100ML BAG 100 ML IV SCH ×3 (04:59→20:47)
[2020-03-11] MEDS: INSULIN R PO SS1 SQ SCH ×4 (06:11→21:00)
[2020-03-11] MEDS ORDERED: DEXTROSE 5 % AND 0.9 % NACL 1,000 ML IV SCH (07:45)
--- NOTE | 2020-03-11 08:24 | NUR ---
Patient is s/p Amputation 3rd and 4th Right Toe 03/10/2020.Physical therapy will see patient on a daily basis for transfer and gait training as tolerated using RW and surgical shoe and will let Nursing staff to get out of bed every meal time to comply with MD's order QID.Will continue with PT treatment plan as per patient tolerance. Addendum: 03/11/20 at 0828 by JOHNNY JHA, PT PT Amended: Links added.
[2020-03-11] MEDS: FOLIC ACID/VITAMIN B COMP W-C 1 CAP TAB PO SCH (10:08)
[2020-03-11] MEDS: PANTOPRAZOLE SODIUM 40 MG TABLET.DR PO SCH (10:08)
[2020-03-11] MEDS: CLOPIDOGREL BISULFATE 75 MG TAB PO SCH (10:08)
[2020-03-11] MEDS: ATORVASTATIN CALCIUM 10 MG TABLET PO SCH (10:08)
[2020-03-11] MEDS: CEFEPIME HCL 1 GM VIAL IVP SCH ×2 (10:08→20:46)
[2020-03-11] MEDS: ASPIRIN 81 MG EC TAB PO SCH (10:08)
[2020-03-11] MEDS: ONDANSETRON HCL 4 MG/2 ML VIAL IVP PRN ×2 (10:10→15:50)
[2020-03-11] MEDS: ACETYLCYSTEINE 600 MG CAPSULE PO SCH ×2 (10:20→20:47)
[2020-03-11] MEDS: HEPARIN SODIUM 5000UNIT/ML 1ML VIAL SQ SCH ×2 (10:26→20:47)
[2020-03-11] MEDS ORDERED: METOCLOPRAMIDE 10 MG/2 ML VIAL ONE (15:45)
[2020-03-11] MEDS: METOCLOPRAMIDE 10 MG/2 ML VIAL IVP SCH (15:50)
[2020-03-11] MEDS: TRAMADOL HCL 50 MG TABLET PO PRN (15:50)
--- NOTE | 2020-03-11 16:51 | NUR ---
Nutrition Screen: Patient screened d/t los >7 days. Pt admitted with non healing wounds and is s/p amputation right metatarsal 3rd & 4th toe. Pt on oral diet 75gm CCD with inconsistent fair intake of 50-75% of meal and skipping others. She states it is due to nausea, loss of appetite, and "can't hold it down." Symptoms started 2 days prior to surgery. Pt was started on zofran and protonix. LBM 03/08 x3 days. Recommend: continue patient on 75gm CCD. Informed patient to request items that are strong order when menu is being read. Will monitor symptoms post initiation of antiemetic medication. When patient is eating at least 75% of meals and is tolerating: add Bert x2/day for wound healing/ protein needs. Monitor 3-5 days for intake. Addendum: 03/11/20 at [address] Amended: Links added.
[2020-03-11] MEDS ORDERED: PROMETHAZINE HCL 25 MG/ML 1ML AMPULE IM PRN (20:30)
[2020-03-11] MEDS: LEVEMIR PO SCH (21:00)
[2020-03-12] MEDS: SODIUM CHLORIDE 0.9% 1000ML 1,000 ML IV SCH ×3 (00:05→12:43)
[2020-03-12] MEDS: HYDROMORPHONE HCL 0.5 MG/0.5 ML ML IVP PRN ×2 (01:19→03:00)
[2020-03-12 04:25] VITALS: BP 138/78; PULSE 92; RESP 20; TEMP 98.1
[2020-03-12] MEDS: METRONIDAZOLE 500MG/100ML BAG 100 ML IV SCH ×3 (06:00→21:49)
[2020-03-12] MEDS ORDERED: METOCLOPRAMIDE 10 MG/2 ML VIAL IVP SCH (07:30)
[2020-03-12] MEDS: INSULIN R PO SS1 SQ SCH ×4 (07:30→21:00)
[2020-03-12] MEDS: METOCLOPRAMIDE 10 MG/2 ML VIAL IVP SCH ×2 (07:30→10:01)
--- NOTE | 2020-03-12 08:21 | NUR ---
DR. Ocampo at bedside Changing dressing. He states that For today 03/12: He Applied Xeroform or wet to dry, then cover with kerlix, tape then surgical shoe. He also stated to Consult case therapist to arrange home health. If h/h is set up Sunday03/12/20) may start wound vacc at home, If patient stays, Start wound vac Sunday (03/13/20) here in hospital. Monitor output.
[2020-03-12 08:44] VITALS: BP 151/85; PULSE 96; RESP 18; TEMP 98.2
[2020-03-12] MEDS: CEFEPIME HCL 1 GM VIAL IVP SCH ×2 (09:57→21:49)
[2020-03-12] MEDS: ATORVASTATIN CALCIUM 10 MG TABLET PO SCH (09:58)
[2020-03-12] MEDS: ASPIRIN 81 MG EC TAB PO SCH (09:58)
[2020-03-12] MEDS: ACETYLCYSTEINE 600 MG CAPSULE PO SCH ×2 (09:59→21:49)
[2020-03-12] MEDS: FOLIC ACID/VITAMIN B COMP W-C 1 CAP TAB PO SCH (09:59)
[2020-03-12] MEDS: PANTOPRAZOLE SODIUM 40 MG TABLET.DR PO SCH (09:59)
[2020-03-12] MEDS: CLOPIDOGREL BISULFATE 75 MG TAB PO SCH (09:59)
[2020-03-12] MEDS: ONDANSETRON HCL 4 MG/2 ML VIAL IVP PRN (09:59)
[2020-03-12] MEDS: HEPARIN SODIUM 5000UNIT/ML 1ML VIAL SQ SCH ×2 (10:14→21:49)
[2020-03-12 11:14] VITALS: BP 144/74; PULSE 92; RESP 16; TEMP 98.6
--- NOTE | 2020-03-12 12:00 | NUR ---
FLAVIO CULVER-PROJECT SAFETY MANAGER AWARE OF NAUSEA/DIARRHEA STATES TO STOP REGLAN AND DILAUDID. NO OTHER ORDERS.
[2020-03-12 17:12] VITALS: BP 142/64; PULSE 96; RESP 20; TEMP 99.9
[2020-03-12 19:25] VITALS: BP 147/85; PULSE 106; RESP 17; TEMP 98.2
[2020-03-12] MEDS: LEVEMIR PO SCH (21:00)
[2020-03-12] MEDS: TRAMADOL HCL 50 MG TABLET PO PRN (23:10)
[2020-03-12 23:31] VITALS: BP 135/72; PULSE 97; RESP 17; TEMP 98.6
[2020-03-13] MEDS: SODIUM CHLORIDE 0.9% 1000ML 1,000 ML IV SCH (01:30)
[2020-03-13 04:17] VITALS: BP 129/61; PULSE 96; RESP 20; TEMP 98.2
[2020-03-13] MEDS: INSULIN R PO SS1 SQ SCH ×4 (05:42→21:00)
[2020-03-13] MEDS: TRAMADOL HCL 50 MG TABLET PO PRN ×2 (06:02→21:43)
[2020-03-13] MEDS: METRONIDAZOLE 500MG/100ML BAG 100 ML IV SCH ×3 (06:02→21:10)
[2020-03-13 08:00] VITALS: BP 177/81; PULSE 85; RESP 17; TEMP 98.1
[2020-03-13] MEDS: PANTOPRAZOLE SODIUM 40 MG TABLET.DR PO SCH (09:15)
[2020-03-13] MEDS: ACETYLCYSTEINE 600 MG CAPSULE PO SCH ×2 (09:15→20:55)
[2020-03-13] MEDS: CEFEPIME HCL 1 GM VIAL IVP SCH ×2 (09:15→20:55)
[2020-03-13] MEDS: FOLIC ACID/VITAMIN B COMP W-C 1 CAP TAB PO SCH (09:16)
[2020-03-13] MEDS: ATORVASTATIN CALCIUM 10 MG TABLET PO SCH (09:16)
[2020-03-13] MEDS: CLOPIDOGREL BISULFATE 75 MG TAB PO SCH (09:16)
[2020-03-13] MEDS: ASPIRIN 81 MG EC TAB PO SCH (09:16)
[2020-03-13] MEDS: HEPARIN SODIUM 5000UNIT/ML 1ML VIAL SQ SCH ×2 (09:27→20:39)
[2020-03-13 11:47] VITALS: BP 146/67; PULSE 88; RESP 18; TEMP 98.1
[2020-03-13 16:00] VITALS: BP_SYST 115; BP_SYST 140; BP_DIAS 69; BP_DIAS 70; PULSE 111; RESP 21; TEMP 98.2
--- NOTE | 2020-03-13 20:27 | NUR ---
PER MD ORDER WOUND VAC APPLIED TO RIGHT FOOT, CONTINUOS AT 125 mmHG ASSISTED DORI GALLAGHER. PT TOLERATED WELL, DENIES PAIN. WILL CONTINUE TO MONITOR.
[2020-03-13] MEDS: ONDANSETRON HCL 4 MG/2 ML VIAL IVP SCH (20:45)
[2020-03-13] MEDS: ONDANSETRON HCL 4 MG/2 ML VIAL IVP PRN (20:55)
[2020-03-13 20:56] VITALS: BP 152/71; PULSE 91; RESP 19; TEMP 98.1
[2020-03-13] MEDS: LEVEMIR PO SCH (21:00)
[2020-03-13] MEDS ORDERED: PHARMACY COMMUNICATION MISC SCH (21:15)
[2020-03-14 00:15] VITALS: BP 134/69; PULSE 91; RESP 19; TEMP 98.1
[2020-03-14] MEDS: SODIUM CHLORIDE 0.9% 1000ML 1,000 ML IV SCH ×2 (04:10→14:34)
[2020-03-14 04:39] VITALS: BP 144/73; PULSE 96; RESP 19; TEMP 98.2
[2020-03-14] MEDS: METRONIDAZOLE 500MG/100ML BAG 100 ML IV SCH ×3 (05:02→21:12)
[2020-03-14] MEDS: MAGNESIUM 2GM PREMIX 50ML 50 ML IV PRN (05:08)
[2020-03-14] MEDS: INSULIN R PO SS1 SQ SCH ×4 (05:55→20:37)
[2020-03-14] MEDS ORDERED: POTASSIUM CHLORIDE 10% ELIXIR 20 MEQ/15 ML UDCUP PO PRN (06:45)
[2020-03-14] MEDS ORDERED: POTASSIUM CHLORIDE 20MEQ/100ML 100 ML IV PRN (06:45)
[2020-03-14] MEDS ORDERED: LIDOCAINE HCL-MPF 1% 2ML VIAL IV PRN (06:45)
[2020-03-14] MEDS: ONDANSETRON HCL 4 MG/2 ML VIAL IVP SCH ×3 (07:13→16:59)
[2020-03-14] MEDS: POTASSIUM CHLORIDE 20 MEQ ERTAB PO PRN ×5 (07:53→20:31)
[2020-03-14 08:00] VITALS: BP 151/72; PULSE 92; RESP 19; TEMP 98.6
[2020-03-14] MEDS: FOLIC ACID/VITAMIN B COMP W-C 1 CAP TAB PO SCH (08:25)
[2020-03-14] MEDS: PANTOPRAZOLE SODIUM 40 MG TABLET.DR PO SCH (08:26)
[2020-03-14] MEDS: CLOPIDOGREL BISULFATE 75 MG TAB PO SCH (08:26)
[2020-03-14] MEDS: ACETYLCYSTEINE 600 MG CAPSULE PO SCH ×2 (08:26→20:31)
[2020-03-14] MEDS: ASPIRIN 81 MG EC TAB PO SCH (08:26)
[2020-03-14] MEDS: ATORVASTATIN CALCIUM 10 MG TABLET PO SCH (08:27)
[2020-03-14] MEDS: HEPARIN SODIUM 5000UNIT/ML 1ML VIAL SQ SCH ×2 (08:40→20:36)
[2020-03-14] MEDS: CEFEPIME HCL 1 GM VIAL IVP SCH ×2 (08:42→20:30)
[2020-03-14 12:00] VITALS: BP 145/77; PULSE 98; RESP 19; TEMP 100
[2020-03-14 16:00] VITALS: BP 149/74; PULSE 94; RESP 18; TEMP 98.1
[2020-03-14] MEDS: TRAMADOL HCL 50 MG TABLET PO PRN (20:32)
[2020-03-14] MEDS: LEVEMIR PO SCH (20:38)
[2020-03-14 21:06] VITALS: BP 154/74; PULSE 96; RESP 20; TEMP 98.8
[2020-03-15] VITALS (7 sets, daily range): BP systolic 137–150; BP diastolic 65–76; PULSE 94–100; RESP 16–20; TEMP 97.9–99.7
[2020-03-15] MEDS: POTASSIUM CHLORIDE 20 MEQ ERTAB PO PRN (00:04)
[2020-03-15] MEDS: TRAMADOL HCL 50 MG TABLET PO PRN ×2 (03:03→19:58)
[2020-03-15] MEDS: METRONIDAZOLE 500MG/100ML BAG 100 ML IV SCH ×3 (05:19→21:42)
[2020-03-15] MEDS: INSULIN R PO SS1 SQ SCH ×4 (05:20→21:00)
[2020-03-15] MEDS: SODIUM CHLORIDE 0.9% 1000ML 1,000 ML IV SCH ×2 (06:00→19:45)
[2020-03-15] MEDS: ONDANSETRON HCL 4 MG/2 ML VIAL IVP SCH ×3 (06:15→16:40)
[2020-03-15] MEDS: CEFEPIME HCL 1 GM VIAL IVP SCH ×2 (07:50→19:45)
[2020-03-15] MEDS: ASPIRIN 81 MG EC TAB PO SCH (08:22)
[2020-03-15] MEDS: ATORVASTATIN CALCIUM 10 MG TABLET PO SCH (08:22)
[2020-03-15] MEDS: PANTOPRAZOLE SODIUM 40 MG TABLET.DR PO SCH (08:23)
[2020-03-15] MEDS: FOLIC ACID/VITAMIN B COMP W-C 1 CAP TAB PO SCH (08:23)
[2020-03-15] MEDS: ACETYLCYSTEINE 600 MG CAPSULE PO SCH ×2 (08:23→19:45)
[2020-03-15] MEDS: CLOPIDOGREL BISULFATE 75 MG TAB PO SCH (08:23)
[2020-03-15] MEDS: HEPARIN SODIUM 5000UNIT/ML 1ML VIAL SQ SCH ×2 (08:24→19:53)
[2020-03-15] MEDS: ASCORBIC ACID 500 MG TAB PO SCH (09:26)
[2020-03-15] MEDS ORDERED: PROMETHAZINE HCL 25 MG/ML 1ML AMPULE IM SCH (11:45)
[2020-03-15] MEDS: LEVEMIR PO SCH (21:00)
--- NOTE | 2020-03-16 01:12 | NUR ---
WOUND VAC Wound vac changed,roberto well.Picture taken fild on chart.
[2020-03-16] MEDS: TRAMADOL HCL 50 MG TABLET PO PRN ×2 (02:34→20:57)
--- NOTE | 2020-03-16 02:41 | NUR ---
PAIN Pt medicated with Tramadol for c/o pain rt foot.
[2020-03-16 03:38] VITALS: BP 147/75; PULSE 96; RESP 17; TEMP 98.3
--- NOTE | 2020-03-16 03:41 | NUR ---
MED EFFECT Pt resting quietly in bed,respirations even and unlabored
[2020-03-16] MEDS: METRONIDAZOLE 500MG/100ML BAG 100 ML IV SCH (06:01)
[2020-03-16] MEDS: INSULIN R PO SS1 SQ SCH ×4 (06:11→21:00)
[2020-03-16] MEDS: ONDANSETRON HCL 4 MG/2 ML VIAL IVP SCH ×3 (06:22→17:58)
[2020-03-16 08:18] VITALS: BP 149/76; PULSE 97; RESP 19; TEMP 98
[2020-03-16] MEDS ORDERED: LEVOFLOXACIN 500 MG TABLET ONE (08:21)
[2020-03-16] MEDS: LEVOFLOXACIN 500 MG TABLET PO SCH (09:00)
[2020-03-16] MEDS: HEPARIN SODIUM 5000UNIT/ML 1ML VIAL SQ SCH ×2 (09:19→21:02)
[2020-03-16] MEDS: FOLIC ACID/VITAMIN B COMP W-C 1 CAP TAB PO SCH (09:20)
[2020-03-16] MEDS: ATORVASTATIN CALCIUM 10 MG TABLET PO SCH (09:21)
[2020-03-16] MEDS: ASPIRIN 81 MG EC TAB PO SCH (09:21)
[2020-03-16] MEDS: PANTOPRAZOLE SODIUM 40 MG TABLET.DR PO SCH (09:21)
[2020-03-16] MEDS: ASCORBIC ACID 500 MG TAB PO SCH (09:21)
[2020-03-16] MEDS: CLOPIDOGREL BISULFATE 75 MG TAB PO SCH (09:22)
[2020-03-16] MEDS: ACETYLCYSTEINE 600 MG CAPSULE PO SCH ×2 (09:22→21:56)
[2020-03-16] MEDS: SODIUM CHLORIDE 0.9% 1000ML 1,000 ML IV SCH ×2 (09:30→21:57)
--- NOTE | 2020-03-16 10:00 | NUR ---
CM Note: [facility] and [facility] woundvac pending approval CM spoke to pt's daughter Tomeka Laughlin, changed her mind regarding placement, prefers to take pt home instead. Agreeable for home w/HH and DME, telephone consent obtained ILIANA for [facility]/Any HH and [facility] woundvac. Faxed order and clinicals to [facility], confirmation received. Pt pending approval at this time. Faxed clinicals to [facility] woundvac, currently pending Dr Ocampo to sign [facility] script flagged in chart, confirmation received. Pt pending approval and [facility] woundvac delivery. Primary nurse aware of the above. CM to cont to follow up.
[2020-03-16] MEDS: CEFUROXIME AXETIL 250 MG TABLET PO SCH ×2 (11:38→20:56)
[2020-03-16 11:53] VITALS: BP 142/69; PULSE 89; RESP 19; TEMP 98
--- NOTE | 2020-03-16 12:35 | NUR ---
Called spouse to let know of change in condition. Initially answered phone, but did not speak. Called spouse's phone number back and voicemail picked up. Unable to leave message due to voicemail being full. Will continue to attempt to reach spouse. Addendum: 03/16/20 at 1332 by AILEEN FOX RN RN Please disregard, wrong patient.
--- NOTE | 2020-03-16 15:19 | NUR ---
CM Note: [facility] approval CM spoke to Elyssa sneed/[facility], pt has approval. Aware pt pending I woundvac approval and delivery. Primary nurse aware, to give report once pt ready to DC. CM to cont to follow up.
[2020-03-16 16:19] VITALS: BP 142/87; PULSE 101; RESP 19; TEMP 97.9
--- NOTE | 2020-03-16 17:05 | NUR ---
Requested measurements from nightshift nurse that changed dressing on 03/15/20. Per Myrtle Franco RN, no measurements taken when changing wound vac dressing.
[2020-03-16 20:00] VITALS: BP 147/75; PULSE 101; RESP 17; TEMP 98.5
[2020-03-16] MEDS: LEVEMIR PO SCH (20:56)
--- NOTE | 2020-03-16 21:00 | NUR ---
MEDS SHIFT ASSESSMENT DONE, PLEASE REFER TO CHART. PT CLAIMS OF RT FOOT PAINS. DUE MEDS ADMINISTERED, MEDICATED WITH ULTRAM FOR PAINS. KEPT RESTED AND COMFORTABLE. CALL LIGHT WITHIN REACH. WILL RE-ASSESS PT. Addendum: 03/17/20 at 0241 by GABBIE BUCKNER RN RN Amended: Links added.
[2020-03-16] MEDS: ONDANSETRON HCL 4 MG/2 ML VIAL IVP PRN (21:56)
--- NOTE | 2020-03-16 21:56 | NUR ---
NAUSEA PT VERBALIZES NAUSEA BUT NO EMESIS. MEDICATED WITH ZOFRAN IV. WILL RE-ASSESS PT.
[2020-03-17] VITALS (7 sets, daily range): BP systolic 131–152; BP diastolic 71–83; PULSE 96–111; RESP 16–18; TEMP 98–98.8
--- NOTE | 2020-03-17 02:00 | NUR ---
ROUNDS PT RESTING WELL, FAIRLY ASLEEP. NO DISTRESS NOTED. KEPT RESTED AND COMFORTABLE. CALL LIGHT WITHIN REACH. WILL MONITOR PT.
[2020-03-17] MEDS: ONDANSETRON HCL 4 MG/2 ML VIAL IVP SCH ×3 (05:58→17:32)
[2020-03-17] MEDS: INSULIN R PO SS1 SQ SCH ×4 (05:59→21:00)
[2020-03-17] MEDS: MAGNESIUM 2GM PREMIX 50ML 50 ML IV PRN (06:10)
--- NOTE | 2020-03-17 06:10 | NUR ---
[facility] PCP IN AND GAVE PT A BED BATH, TOLERATING ACTIVITY WELL. MG RESULTS=1.5, STARTED IV INFUSION PER PROTOCOL. FOR MORE CARE.
[2020-03-17] MEDS: ACETYLCYSTEINE 600 MG CAPSULE PO SCH ×2 (09:18→23:22)
[2020-03-17] MEDS: CLOPIDOGREL BISULFATE 75 MG TAB PO SCH (09:18)
[2020-03-17] MEDS: ASPIRIN 81 MG EC TAB PO SCH (09:18)
[2020-03-17] MEDS: FOLIC ACID/VITAMIN B COMP W-C 1 CAP TAB PO SCH (09:18)
[2020-03-17] MEDS: ASCORBIC ACID 500 MG TAB PO SCH (09:18)
[2020-03-17] MEDS: PANTOPRAZOLE SODIUM 40 MG TABLET.DR PO SCH (09:18)
[2020-03-17] MEDS: ATORVASTATIN CALCIUM 10 MG TABLET PO SCH (09:18)
[2020-03-17] MEDS: LEVOFLOXACIN 500 MG TABLET PO SCH (09:18)
[2020-03-17] MEDS: CEFUROXIME AXETIL 250 MG TABLET PO SCH ×2 (09:19→23:22)
[2020-03-17] MEDS: HEPARIN SODIUM 5000UNIT/ML 1ML VIAL SQ SCH ×2 (09:29→23:35)
[2020-03-17] MEDS: PROMETHAZINE HCL 25 MG/ML 1ML AMPULE IM SCH (11:15)
--- NOTE | 2020-03-17 11:50 | NUR ---
wound drsg changed to her rt foot, 3rd 4 th toe area. and measurement done . wound vac drsg changed per charge nurse , ginger jones. tolerate well.
--- NOTE | 2020-03-17 11:50 | NUR ---
UNABLE TO GIVE THE PHENERGAN 25 MG IM. PT GOT HER ZOFRAN . 4 MG IV SCHLD DOSE TID WILL KEEP ASSESSING NAUSEA . TO BE PENDING TO BE GIVEN WILL DIRECT TO CARE
[2020-03-17] MEDS: SODIUM CHLORIDE 0.9% 1000ML 1,000 ML IV SCH (12:10)
--- NOTE | 2020-03-17 14:30 | NUR ---
CM Note: [facility] pending approval and delivery CM spoke to nurse Carolina, pending to do woundvac dressing to obtain wound measurements, Anuradha Juan NP signed [facility] form. Pending to be faxed once measurements obtained. Pt pending approval and delivery. CM to cont to follow up.
--- NOTE | 2020-03-17 17:23 | NUR ---
PT BACK FROM THE [facility] , DEPT. AFTER THE GASTRIC EMPTY STUDY/ NPO PENDING ABD SONOGRAM . EXPLAIN TO PT OF STATUS ,AND PENDING PROCEDURE, HOB UP
[2020-03-17] MEDS: TRAMADOL HCL 50 MG TABLET PO PRN (17:33)
--- NOTE | 2020-03-17 17:50 | NUR ---
PENDING ULTRA SOUND OF THE ABD . PT IS AWARE OF NPO STATUS, , CALL LIGHT IN REACH. EDUCATION IF SHE GET NAUSEA FEELING . PHENERGAN 25 MG IM PENDING TO GIVE,
[2020-03-17] MEDS: LEVEMIR PO SCH (21:00)
[2020-03-18] MEDS: SODIUM CHLORIDE 0.9% 1000ML 1,000 ML IV SCH ×2 (01:48→14:50)
[2020-03-18] MEDS: MAGNESIUM 2GM PREMIX 50ML 50 ML IV PRN (03:13)
[2020-03-18 04:02] VITALS: BP 131/73; PULSE 106; RESP 18; TEMP 98.4
[2020-03-18] MEDS: ONDANSETRON HCL 4 MG/2 ML VIAL IVP SCH ×2 (06:37→12:42)
[2020-03-18] MEDS: INSULIN R PO SS1 SQ SCH ×2 (06:39→12:54)
[2020-03-18 07:30] VITALS: BP 131/71; PULSE 105; RESP 18; TEMP 98.4
--- NOTE | 2020-03-18 08:00 | NUR ---
PT AAO X 3 REVIEW PLAN OF CARE AND FALL RISK CALL LIGHT IN REACH. DENIES ANY PAIN ,AND WOUND VAC IN PLACE TO HER RT FOOT, NOTED NO LEAKS.
[2020-03-18] MEDS: LEVOFLOXACIN 500 MG TABLET PO SCH (09:23)
[2020-03-18] MEDS: CEFUROXIME AXETIL 250 MG TABLET PO SCH (09:24)
[2020-03-18] MEDS: ACETYLCYSTEINE 600 MG CAPSULE PO SCH (09:24)
[2020-03-18] MEDS: FOLIC ACID/VITAMIN B COMP W-C 1 CAP TAB PO SCH (09:24)
[2020-03-18] MEDS: ASPIRIN 81 MG EC TAB PO SCH (09:24)
[2020-03-18] MEDS: PANTOPRAZOLE SODIUM 40 MG TABLET.DR PO SCH (09:24)
[2020-03-18] MEDS: CLOPIDOGREL BISULFATE 75 MG TAB PO SCH (09:24)
[2020-03-18] MEDS: ATORVASTATIN CALCIUM 10 MG TABLET PO SCH (09:25)
[2020-03-18] MEDS: ASCORBIC ACID 500 MG TAB PO SCH (09:28)
[2020-03-18] MEDS: HEPARIN SODIUM 5000UNIT/ML 1ML VIAL SQ SCH (09:41)
--- NOTE | 2020-03-18 10:27 | NUR ---
CM Note: [facility] woundvac pending approval and delivery CM faxed [facility] script w/updated wound measurements and signature, confirmation received. Pt pending approval and delivery. Primary nurse aware. CM to cont to follow up.
[2020-03-18 11:00] VITALS: BP 135/75; PULSE 114; RESP 20; TEMP 98.1
[2020-03-18] MEDS: PROMETHAZINE HCL 25 MG/ML 1ML AMPULE IM SCH (11:15)
--- NOTE | 2020-03-18 12:30 | NUR ---
DR. JIM AWARE . PT DID NOT GET THE PHENERGAN 25 MG IM .DUE TO PT .HAD SCHLD DOSES OF ZORFAN 4 MG IV BEFORE EATING, ALREADY. ITS FINE . NO CHANGES .
--- NOTE | 2020-03-18 12:50 | NUR ---
DR. JIM HERE AND REVIEW THE GASTRIC FLOW TEST AND EXPLAIN TO PT THE RESULTS , ASK FOR PRIMARY DRFreda TO FOLLOW UP WITH A PRESCRIP FOR THE GASTRICPHRESIS . STATUS. AND TO LET DR. NELSON KNOW OF THE TEST DONE, F OR ANY QUESTIONS. FOR FOLLOWUP . CARE
--- NOTE | 2020-03-18 12:50 | NUR ---
[facility] SUPPLIES HERE ,AND CHANGED THE WOUND VAC FOR PT TO TAKE HOME, REVIEW SETUP . PLACED ON THE WOUND VAC SITE TO HER RT FOOT. AND SUCTION WELL. NOTED NO LEAKS .
--- NOTE | 2020-03-18 13:00 | NUR ---
DR. CRUMP HERE AND REVIEW KYLAH DEL CID .
--- NOTE | 2020-03-18 13:50 | NUR ---
ASSIT PT. TO THE SHOWER AND RT LEG/FOOT WAS COVER TO PREVENT IT TO GET WET. TOLERATE WELL. AFTER SHOWER. RT FOOT WOUND VAC DRSG DRY NOTED NO LEAKS
--- NOTE | 2020-03-18 14:28 | NUR ---
CM Note: [facility] approval and delivery Verified pt [facility] approved and delivered in pt's room. Pt safe to DC once MD clear. Called pt's daughter Corinne given update. Primary nurse aware. CM to cont to follow up.
--- NOTE | 2020-03-18 16:25 | NUR ---
CALLED [facility] , SPOKE WITH CHAN CALDERA HOME HEALTH STAFF REGARDING DISCHARGE AND ALSO PT . PENDING APPT. WITH HER PRIVATE Serjio ORDOÑEZ AND WOUND CARE TO SEE .DR DIEHL AT THE WOUND CENTER IN [place] .
--- NOTE | 2020-03-18 16:40 | NUR ---
DISCHARGE SUMMARY REVIEW WITH PT. REGARDING CONT CARE AT HOME, EDUCATION . REGARDING THE HOME HEALTH AND APPT. SETUP WITH HER PRIVATE DRFreda AND AT THE WOUND CENTER TO SEE DR. DIEHL SETUP AND WRITTEN DOWN IN HER DISCHARGE SUMMARY PULSES MONITOR WITH THE DOPPLER , TO HER RT FOOT. UPPER DORSALES AND INNER AND OUTER TIBIALS STRONG RESPOND, NOTED . RT LEG WARM TO TOUCH, TOWARD HER RT FOOT. DENIES ANY PAIN. PT WENT HOME ,WITH A PRESET. PORTABLE WOUND VAC, AND NOTED NO AIR LEAKS, WOUND VAC WAS CHANGED ON 03/17/2020 AND PICTURES DONE . SL TO HER RAC WAS DC WITH NO HEMATOMA OR REDNESS NOTED . SM DRSG APPLICATION APPLY, PT VERY HAPPY , REVIEW THE PRESP OF ANTIBOTICS OF LEVAQUIN 500 MG I TAB PO X 7 DAYS, AND REGLAN 10 PO DAILY, RISK AND SIDE EFFECTS DISCUSS, DAUGHTER WAS CALLED TO PICK HER UP . PERSONAL BELONGING AND SUPPLIES NOTED WITH PT. PHONE , AND BLACK PURSE WITH PT.
== END 2020-03-18 16:40 | disposition home health service (06) | DRG 253 ==
LOC: EDH 15:40 → EDHIP 17:25 → OBSVTOIN 17:25 → 3CH 03-03 07:03 → 3DH 03-16 17:58 → 3BH 03-17 20:43
PROVIDERS: ADMIT Internal Medicine; ATTEND Internal Medicine
PROC: 047Q3ZZ Dilation of Left Anterior Tibial Artery, Percutaneous Approach (ICD-10-PCS; principal; 2020-03-09)
PROC: 047Y3ZZ Dilation of Lower Artery, Percutaneous Approach (ICD-10-PCS; 2020-03-09)
PROC: B41D1ZZ Fluoroscopy of Aorta and Bilateral Lower Extremity Arteries using Low Osmolar Contrast (ICD-10-PCS; 2020-03-09)
PROC: B41G1ZZ Fluoroscopy of Left Lower Extremity Arteries using Low Osmolar Contrast (ICD-10-PCS; 2020-03-09)
PROC: 0Y6T0Z0 Detachment at Right 3rd Toe, Complete, Open Approach (ICD-10-PCS; 2020-03-10)
PROC: 0Y6V0Z0 Detachment at Right 4th Toe, Complete, Open Approach (ICD-10-PCS; 2020-03-10)
DX: E11.52 Type 2 diabetes mellitus with diabetic peripheral angiopathy with gangrene (principal); I96 Gangrene, not elsewhere classified; M86.171 Other acute osteomyelitis, right ankle and foot; L03.115 Cellulitis of right lower limb; N17.9 Acute kidney failure, unspecified; E87.1 Hypo-osmolality and hyponatremia; M87.874 Other osteonecrosis, right foot; M86.671 Other chronic osteomyelitis, right ankle and foot; E11.69 Type 2 diabetes mellitus with other specified complication; E11.42 Type 2 diabetes mellitus with diabetic polyneuropathy; I12.9 Hypertensive chronic kidney disease with stage 1 through stage 4 chronic kidney disease, or unspecified chronic kidney disease; D64.9 Anemia, unspecified; E11.43 Type 2 diabetes mellitus with diabetic autonomic (poly)neuropathy; E78.5 Hyperlipidemia, unspecified; E83.42 Hypomagnesemia; E87.6 Hypokalemia; I70.203 Unspecified atherosclerosis of native arteries of extremities, bilateral legs; K31.84 Gastroparesis; E11.22 Type 2 diabetes mellitus with diabetic chronic kidney disease; N18.3 Chronic kidney disease, stage 3 (moderate); E11.21 Type 2 diabetes mellitus with diabetic nephropathy; L97.519 Non-pressure chronic ulcer of other part of right foot with unspecified severity; E11.621 Type 2 diabetes mellitus with foot ulcer; E66.9 Obesity, unspecified; Z68.28 Body mass index [BMI] 28.0-28.9, adult; Z79.4 Long term (current) use of insulin; Z89.429 Acquired absence of other toe(s), unspecified side; Z83.3 Family history of diabetes mellitus

== ENCOUNTER → 2020-03-24 | Outpatient (CLI) | payer OTHER ==
[~2020-03-24] MED LIST changes: +ATOR10TA69 PO; +HONEY 1 APPL/ML TUBE TP ONE; +INSU100I21 SQ; +LEVO500T2 PO; -LIDOCAINE HCL 2% JELLY 5 ML TP ONE; +LIDOCAINE HCL 4% LTA SOL 4 ML VIAL TP ONE; +LOSA50TA64 PO; +METF-446 PO; +PIOG45TA64 PO; +TRAM50TA4 PO
== END | disposition home or self-care (01) ==
LOC: WHH 09:30
PROVIDERS: ATTEND Podiatrist Foot & Ankle Surgery
DX: T87.89 Other complications of amputation stump (principal); E11.621 Type 2 diabetes mellitus with foot ulcer; I83.015 Varicose veins of right lower extremity with ulcer other part of foot; L97.511 Non-pressure chronic ulcer of other part of right foot limited to breakdown of skin; E11.622 Type 2 diabetes mellitus with other skin ulcer; I83.013 Varicose veins of right lower extremity with ulcer of ankle; L97.311 Non-pressure chronic ulcer of right ankle limited to breakdown of skin; I83.023 Varicose veins of left lower extremity with ulcer of ankle; L97.321 Non-pressure chronic ulcer of left ankle limited to breakdown of skin; E11.52 Type 2 diabetes mellitus with diabetic peripheral angiopathy with gangrene; I96 Gangrene, not elsewhere classified; I10 Essential (primary) hypertension; E78.5 Hyperlipidemia, unspecified; Z98.49 Cataract extraction status, unspecified eye; Z86.73 Personal history of transient ischemic attack (TIA), and cerebral infarction without residual deficits; Y83.5 Amputation of limb(s) as the cause of abnormal reaction of the patient, or of later complication, without mention of misadventure at the time of the procedure
CPT/HCPCS: A6209; G0463

== ENCOUNTER → 2020-03-25 | Outpatient (CLI) | payer OTHER ==
[~2020-03-25] MED LIST changes: -HONEY 1 APPL/ML TUBE TP ONE; -LIDOCAINE HCL 4% LTA SOL 4 ML VIAL TP ONE
== END | disposition home or self-care (01) ==
LOC: WHH 09:30
PROVIDERS: ATTEND Surgery
DX: T87.89 Other complications of amputation stump (principal); E11.621 Type 2 diabetes mellitus with foot ulcer; I70.235 Atherosclerosis of native arteries of right leg with ulceration of other part of foot; I83.015 Varicose veins of right lower extremity with ulcer other part of foot; L97.512 Non-pressure chronic ulcer of other part of right foot with fat layer exposed; E11.22 Type 2 diabetes mellitus with diabetic chronic kidney disease; I12.9 Hypertensive chronic kidney disease with stage 1 through stage 4 chronic kidney disease, or unspecified chronic kidney disease; N18.3 Chronic kidney disease, stage 3 (moderate); E11.69 Type 2 diabetes mellitus with other specified complication; M86.671 Other chronic osteomyelitis, right ankle and foot; E11.43 Type 2 diabetes mellitus with diabetic autonomic (poly)neuropathy; E11.42 Type 2 diabetes mellitus with diabetic polyneuropathy; E11.51 Type 2 diabetes mellitus with diabetic peripheral angiopathy without gangrene; K31.84 Gastroparesis; E66.9 Obesity, unspecified; Z68.26 Body mass index [BMI] 26.0-26.9, adult; Z79.4 Long term (current) use of insulin; Z98.49 Cataract extraction status, unspecified eye; Z86.73 Personal history of transient ischemic attack (TIA), and cerebral infarction without residual deficits; Y83.5 Amputation of limb(s) as the cause of abnormal reaction of the patient, or of later complication, without mention of misadventure at the time of the procedure
CPT/HCPCS: A6209; G0463

== ENCOUNTER → 2020-03-29 | Outpatient (CLI) | payer OTHER | END | disposition home or self-care (01) | LOC: WHH 10:00 | PROVIDERS: ATTEND Family Medicine | DX: T87.89 Other complications of amputation stump (principal); E11.621 Type 2 diabetes mellitus with foot ulcer; I70.235 Atherosclerosis of native arteries of right leg with ulceration of other part of foot; I83.015 Varicose veins of right lower extremity with ulcer other part of foot; L97.512 Non-pressure chronic ulcer of other part of right foot with fat layer exposed; E11.22 Type 2 diabetes mellitus with diabetic chronic kidney disease; I12.9 Hypertensive chronic kidney disease with stage 1 through stage 4 chronic kidney disease, or unspecified chronic kidney disease; N18.3 Chronic kidney disease, stage 3 (moderate); E11.69 Type 2 diabetes mellitus with other specified complication; M86.671 Other chronic osteomyelitis, right ankle and foot; E11.43 Type 2 diabetes mellitus with diabetic autonomic (poly)neuropathy; E11.42 Type 2 diabetes mellitus with diabetic polyneuropathy; E11.51 Type 2 diabetes mellitus with diabetic peripheral angiopathy without gangrene; K31.84 Gastroparesis; E66.9 Obesity, unspecified; Z68.26 Body mass index [BMI] 26.0-26.9, adult; Z79.4 Long term (current) use of insulin; Z98.49 Cataract extraction status, unspecified eye; Z86.73 Personal history of transient ischemic attack (TIA), and cerebral infarction without residual deficits; Y83.5 Amputation of limb(s) as the cause of abnormal reaction of the patient, or of later complication, without mention of misadventure at the time of the procedure | CPT/HCPCS: 82948 ×3; A6209; G0277 ==

== ENCOUNTER → 2020-03-30 | Outpatient (CLI) | payer OTHER | END | disposition home or self-care (01) | LOC: WHH 09:50 | PROVIDERS: ATTEND Surgery | DX: E11.621 Type 2 diabetes mellitus with foot ulcer (principal); I70.235 Atherosclerosis of native arteries of right leg with ulceration of other part of foot; I83.015 Varicose veins of right lower extremity with ulcer other part of foot; L97.511 Non-pressure chronic ulcer of other part of right foot limited to breakdown of skin; E11.22 Type 2 diabetes mellitus with diabetic chronic kidney disease; I12.0 Hypertensive chronic kidney disease with stage 5 chronic kidney disease or end stage renal disease; N18.3 Chronic kidney disease, stage 3 (moderate); E11.52 Type 2 diabetes mellitus with diabetic peripheral angiopathy with gangrene; I96 Gangrene, not elsewhere classified; E11.69 Type 2 diabetes mellitus with other specified complication; M86.671 Other chronic osteomyelitis, right ankle and foot; E11.21 Type 2 diabetes mellitus with diabetic nephropathy; E11.42 Type 2 diabetes mellitus with diabetic polyneuropathy; E11.43 Type 2 diabetes mellitus with diabetic autonomic (poly)neuropathy; I70.202 Unspecified atherosclerosis of native arteries of extremities, left leg; E78.5 Hyperlipidemia, unspecified; E66.9 Obesity, unspecified; Z86.73 Personal history of transient ischemic attack (TIA), and cerebral infarction without residual deficits; Z79.4 Long term (current) use of insulin; Z98.49 Cataract extraction status, unspecified eye; Z89.429 Acquired absence of other toe(s), unspecified side | CPT/HCPCS: 82948 ×3; G0277 ==

== ENCOUNTER → 2020-03-31 | Outpatient (CLI) | payer OTHER | END | disposition home or self-care (01) | LOC: WHH 09:45 | PROVIDERS: ATTEND Podiatrist Foot & Ankle Surgery | DX: T87.89 Other complications of amputation stump (principal); E11.621 Type 2 diabetes mellitus with foot ulcer; I83.015 Varicose veins of right lower extremity with ulcer other part of foot; L97.511 Non-pressure chronic ulcer of other part of right foot limited to breakdown of skin; E11.622 Type 2 diabetes mellitus with other skin ulcer; I83.013 Varicose veins of right lower extremity with ulcer of ankle; L97.311 Non-pressure chronic ulcer of right ankle limited to breakdown of skin; I83.023 Varicose veins of left lower extremity with ulcer of ankle; E11.52 Type 2 diabetes mellitus with diabetic peripheral angiopathy with gangrene; I96 Gangrene, not elsewhere classified; E11.21 Type 2 diabetes mellitus with diabetic nephropathy; E11.22 Type 2 diabetes mellitus with diabetic chronic kidney disease; I12.9 Hypertensive chronic kidney disease with stage 1 through stage 4 chronic kidney disease, or unspecified chronic kidney disease; N18.3 Chronic kidney disease, stage 3 (moderate); E11.43 Type 2 diabetes mellitus with diabetic autonomic (poly)neuropathy; K31.84 Gastroparesis; E66.9 Obesity, unspecified; E78.5 Hyperlipidemia, unspecified; Z98.49 Cataract extraction status, unspecified eye; Z86.73 Personal history of transient ischemic attack (TIA), and cerebral infarction without residual deficits; Z68.26 Body mass index [BMI] 26.0-26.9, adult; Z79.4 Long term (current) use of insulin; Y83.5 Amputation of limb(s) as the cause of abnormal reaction of the patient, or of later complication, without mention of misadventure at the time of the procedure | CPT/HCPCS: 82948 ×5; A6209; G0277 ==

== ENCOUNTER → 2020-04-01 | Outpatient (CLI) | payer OTHER | END | disposition home or self-care (01) | LOC: WHH 09:44 | PROVIDERS: ATTEND Surgery | DX: E11.621 Type 2 diabetes mellitus with foot ulcer (principal); I83.015 Varicose veins of right lower extremity with ulcer other part of foot; L97.512 Non-pressure chronic ulcer of other part of right foot with fat layer exposed; E11.52 Type 2 diabetes mellitus with diabetic peripheral angiopathy with gangrene; I96 Gangrene, not elsewhere classified; E11.22 Type 2 diabetes mellitus with diabetic chronic kidney disease; I12.9 Hypertensive chronic kidney disease with stage 1 through stage 4 chronic kidney disease, or unspecified chronic kidney disease; N18.3 Chronic kidney disease, stage 3 (moderate); E11.43 Type 2 diabetes mellitus with diabetic autonomic (poly)neuropathy; K31.84 Gastroparesis; E11.69 Type 2 diabetes mellitus with other specified complication; M86.671 Other chronic osteomyelitis, right ankle and foot; E78.5 Hyperlipidemia, unspecified; Z98.49 Cataract extraction status, unspecified eye; Z86.73 Personal history of transient ischemic attack (TIA), and cerebral infarction without residual deficits; Z89.429 Acquired absence of other toe(s), unspecified side | CPT/HCPCS: 82948 ×2; G0277 ==

== ENCOUNTER → 2020-04-02 | Outpatient (CLI) | payer OTHER | END | disposition home or self-care (01) | LOC: WHH 10:00 | PROVIDERS: ATTEND Family Medicine | DX: E11.621 Type 2 diabetes mellitus with foot ulcer (principal); I83.015 Varicose veins of right lower extremity with ulcer other part of foot; L97.512 Non-pressure chronic ulcer of other part of right foot with fat layer exposed; E11.52 Type 2 diabetes mellitus with diabetic peripheral angiopathy with gangrene; I96 Gangrene, not elsewhere classified; E11.22 Type 2 diabetes mellitus with diabetic chronic kidney disease; I12.9 Hypertensive chronic kidney disease with stage 1 through stage 4 chronic kidney disease, or unspecified chronic kidney disease; N18.3 Chronic kidney disease, stage 3 (moderate); E11.43 Type 2 diabetes mellitus with diabetic autonomic (poly)neuropathy; K31.84 Gastroparesis; E11.69 Type 2 diabetes mellitus with other specified complication; M86.671 Other chronic osteomyelitis, right ankle and foot; E78.5 Hyperlipidemia, unspecified; Z98.49 Cataract extraction status, unspecified eye; Z86.73 Personal history of transient ischemic attack (TIA), and cerebral infarction without residual deficits; Z89.429 Acquired absence of other toe(s), unspecified side | CPT/HCPCS: 82948 ×2; A6209; G0277 ==

== ENCOUNTER → 2020-04-05 | Outpatient (CLI) | payer OTHER | END | disposition home or self-care (01) | LOC: WHH 08:30 | PROVIDERS: ATTEND Family Medicine | DX: E11.621 Type 2 diabetes mellitus with foot ulcer (principal); I83.015 Varicose veins of right lower extremity with ulcer other part of foot; L97.512 Non-pressure chronic ulcer of other part of right foot with fat layer exposed; E11.52 Type 2 diabetes mellitus with diabetic peripheral angiopathy with gangrene; I96 Gangrene, not elsewhere classified; E11.22 Type 2 diabetes mellitus with diabetic chronic kidney disease; I12.9 Hypertensive chronic kidney disease with stage 1 through stage 4 chronic kidney disease, or unspecified chronic kidney disease; N18.3 Chronic kidney disease, stage 3 (moderate); E11.43 Type 2 diabetes mellitus with diabetic autonomic (poly)neuropathy; K31.84 Gastroparesis; E11.69 Type 2 diabetes mellitus with other specified complication; M86.671 Other chronic osteomyelitis, right ankle and foot; E78.5 Hyperlipidemia, unspecified; Z98.49 Cataract extraction status, unspecified eye; Z86.73 Personal history of transient ischemic attack (TIA), and cerebral infarction without residual deficits; Z89.429 Acquired absence of other toe(s), unspecified side | CPT/HCPCS: 82948 ×3; A6209; G0277 ==

== ENCOUNTER → 2020-04-06 | Outpatient (CLI) | payer OTHER ==
[~2020-04-06] MED LIST changes: +ASPI-1443 PO; +GABA300C PO; +IBUP-2070 PO; +RIVA2.5T PO
== END | disposition home or self-care (01) ==
LOC: WHH 08:00
PROVIDERS: ATTEND Surgery
DX: E11.621 Type 2 diabetes mellitus with foot ulcer (principal); I83.015 Varicose veins of right lower extremity with ulcer other part of foot; L97.512 Non-pressure chronic ulcer of other part of right foot with fat layer exposed; E11.52 Type 2 diabetes mellitus with diabetic peripheral angiopathy with gangrene; I96 Gangrene, not elsewhere classified; E11.22 Type 2 diabetes mellitus with diabetic chronic kidney disease; I12.9 Hypertensive chronic kidney disease with stage 1 through stage 4 chronic kidney disease, or unspecified chronic kidney disease; N18.3 Chronic kidney disease, stage 3 (moderate); E11.43 Type 2 diabetes mellitus with diabetic autonomic (poly)neuropathy; K31.84 Gastroparesis; E11.69 Type 2 diabetes mellitus with other specified complication; M86.671 Other chronic osteomyelitis, right ankle and foot; E78.5 Hyperlipidemia, unspecified; Z98.49 Cataract extraction status, unspecified eye; Z86.73 Personal history of transient ischemic attack (TIA), and cerebral infarction without residual deficits; Z89.429 Acquired absence of other toe(s), unspecified side
CPT/HCPCS: 82948 ×2; G0277

== ENCOUNTER → 2020-04-07 | Outpatient (CLI) | payer OTHER ==
[~2020-04-07] MED LIST changes: -ASPI-1443 PO; -GABA300C PO; -IBUP-2070 PO; +LIDOCAINE HCL 4% LTA SOL 4 ML VIAL TP ONE; -RIVA2.5T PO
== END | disposition home or self-care (01) ==
LOC: WHH 08:00
PROVIDERS: ATTEND Podiatrist Foot & Ankle Surgery
DX: T87.89 Other complications of amputation stump (principal); E11.621 Type 2 diabetes mellitus with foot ulcer; I83.015 Varicose veins of right lower extremity with ulcer other part of foot; L97.512 Non-pressure chronic ulcer of other part of right foot with fat layer exposed; E11.52 Type 2 diabetes mellitus with diabetic peripheral angiopathy with gangrene; I96 Gangrene, not elsewhere classified; E11.22 Type 2 diabetes mellitus with diabetic chronic kidney disease; I12.9 Hypertensive chronic kidney disease with stage 1 through stage 4 chronic kidney disease, or unspecified chronic kidney disease; N18.3 Chronic kidney disease, stage 3 (moderate); E11.43 Type 2 diabetes mellitus with diabetic autonomic (poly)neuropathy; K31.84 Gastroparesis; E11.69 Type 2 diabetes mellitus with other specified complication; M86.671 Other chronic osteomyelitis, right ankle and foot; E78.5 Hyperlipidemia, unspecified; Z98.49 Cataract extraction status, unspecified eye; Z86.73 Personal history of transient ischemic attack (TIA), and cerebral infarction without residual deficits; Z89.429 Acquired absence of other toe(s), unspecified side; Y83.5 Amputation of limb(s) as the cause of abnormal reaction of the patient, or of later complication, without mention of misadventure at the time of the procedure
CPT/HCPCS: A6209; G0463

== ENCOUNTER → 2020-04-13 | Outpatient (CLI) | payer OTHER ==
[~2020-04-13] MED LIST changes: +ASPI-1443 PO; +GABA300C PO; +IBUP-2070 PO; -LIDOCAINE HCL 4% LTA SOL 4 ML VIAL TP ONE; +RIVA2.5T PO
== END | disposition home or self-care (01) ==
LOC: WHH 08:00
PROVIDERS: ATTEND Podiatrist Foot & Ankle Surgery
DX: T87.89 Other complications of amputation stump (principal); E11.621 Type 2 diabetes mellitus with foot ulcer; I83.015 Varicose veins of right lower extremity with ulcer other part of foot; L97.512 Non-pressure chronic ulcer of other part of right foot with fat layer exposed; E11.52 Type 2 diabetes mellitus with diabetic peripheral angiopathy with gangrene; I96 Gangrene, not elsewhere classified; E11.22 Type 2 diabetes mellitus with diabetic chronic kidney disease; I12.9 Hypertensive chronic kidney disease with stage 1 through stage 4 chronic kidney disease, or unspecified chronic kidney disease; N18.3 Chronic kidney disease, stage 3 (moderate); E11.43 Type 2 diabetes mellitus with diabetic autonomic (poly)neuropathy; K31.84 Gastroparesis; E11.69 Type 2 diabetes mellitus with other specified complication; M86.671 Other chronic osteomyelitis, right ankle and foot; E78.5 Hyperlipidemia, unspecified; Z98.49 Cataract extraction status, unspecified eye; Z86.73 Personal history of transient ischemic attack (TIA), and cerebral infarction without residual deficits; Z89.429 Acquired absence of other toe(s), unspecified side; Y83.5 Amputation of limb(s) as the cause of abnormal reaction of the patient, or of later complication, without mention of misadventure at the time of the procedure
CPT/HCPCS: 93923; A6209; G0463

== ENCOUNTER → 2020-04-14 | Outpatient (CLI) | payer OTHER ==
[~2020-04-14] MED LIST changes: -ASPI-1443 PO; -GABA300C PO; -IBUP-2070 PO; -RIVA2.5T PO
== END | disposition home or self-care (01) ==
LOC: WHH 08:00
PROVIDERS: ATTEND Podiatrist Foot & Ankle Surgery
DX: T87.89 Other complications of amputation stump (principal); E11.621 Type 2 diabetes mellitus with foot ulcer; I83.015 Varicose veins of right lower extremity with ulcer other part of foot; L97.512 Non-pressure chronic ulcer of other part of right foot with fat layer exposed; E11.52 Type 2 diabetes mellitus with diabetic peripheral angiopathy with gangrene; I96 Gangrene, not elsewhere classified; E11.22 Type 2 diabetes mellitus with diabetic chronic kidney disease; I12.9 Hypertensive chronic kidney disease with stage 1 through stage 4 chronic kidney disease, or unspecified chronic kidney disease; N18.3 Chronic kidney disease, stage 3 (moderate); E11.43 Type 2 diabetes mellitus with diabetic autonomic (poly)neuropathy; K31.84 Gastroparesis; E11.69 Type 2 diabetes mellitus with other specified complication; M86.671 Other chronic osteomyelitis, right ankle and foot; E78.5 Hyperlipidemia, unspecified; Z98.49 Cataract extraction status, unspecified eye; Z86.73 Personal history of transient ischemic attack (TIA), and cerebral infarction without residual deficits; Y83.5 Amputation of limb(s) as the cause of abnormal reaction of the patient, or of later complication, without mention of misadventure at the time of the procedure
CPT/HCPCS: A6209; G0463; L3260

== ENCOUNTER → 2020-04-21 | Outpatient (CLI) | payer OTHER | END | disposition home or self-care (01) | LOC: WHH 08:00 | PROVIDERS: ATTEND Podiatrist Foot & Ankle Surgery | DX: T87.89 Other complications of amputation stump (principal); E11.621 Type 2 diabetes mellitus with foot ulcer; I83.015 Varicose veins of right lower extremity with ulcer other part of foot; L97.512 Non-pressure chronic ulcer of other part of right foot with fat layer exposed; E11.52 Type 2 diabetes mellitus with diabetic peripheral angiopathy with gangrene; I96 Gangrene, not elsewhere classified; E11.22 Type 2 diabetes mellitus with diabetic chronic kidney disease; I12.9 Hypertensive chronic kidney disease with stage 1 through stage 4 chronic kidney disease, or unspecified chronic kidney disease; N18.3 Chronic kidney disease, stage 3 (moderate); E11.43 Type 2 diabetes mellitus with diabetic autonomic (poly)neuropathy; K31.84 Gastroparesis; E11.69 Type 2 diabetes mellitus with other specified complication; M86.671 Other chronic osteomyelitis, right ankle and foot; E78.5 Hyperlipidemia, unspecified; Z98.49 Cataract extraction status, unspecified eye; Z86.73 Personal history of transient ischemic attack (TIA), and cerebral infarction without residual deficits; Y83.5 Amputation of limb(s) as the cause of abnormal reaction of the patient, or of later complication, without mention of misadventure at the time of the procedure | CPT/HCPCS: A6209; G0463 ==

== ENCOUNTER → 2020-05-05 | Outpatient (CLI) | payer OTHER | END | disposition home or self-care (01) | LOC: WHH 08:25 | PROVIDERS: ATTEND Podiatrist Foot & Ankle Surgery | DX: T87.89 Other complications of amputation stump (principal); E11.621 Type 2 diabetes mellitus with foot ulcer; I70.235 Atherosclerosis of native arteries of right leg with ulceration of other part of foot; I83.015 Varicose veins of right lower extremity with ulcer other part of foot; L97.512 Non-pressure chronic ulcer of other part of right foot with fat layer exposed; E11.52 Type 2 diabetes mellitus with diabetic peripheral angiopathy with gangrene; I96 Gangrene, not elsewhere classified; E11.22 Type 2 diabetes mellitus with diabetic chronic kidney disease; I12.9 Hypertensive chronic kidney disease with stage 1 through stage 4 chronic kidney disease, or unspecified chronic kidney disease; N18.3 Chronic kidney disease, stage 3 (moderate); E11.43 Type 2 diabetes mellitus with diabetic autonomic (poly)neuropathy; K31.84 Gastroparesis; E11.69 Type 2 diabetes mellitus with other specified complication; M86.671 Other chronic osteomyelitis, right ankle and foot; E78.5 Hyperlipidemia, unspecified; Z98.49 Cataract extraction status, unspecified eye; Z86.73 Personal history of transient ischemic attack (TIA), and cerebral infarction without residual deficits; Y83.5 Amputation of limb(s) as the cause of abnormal reaction of the patient, or of later complication, without mention of misadventure at the time of the procedure | CPT/HCPCS: G0463 ==

== ENCOUNTER → 2020-05-12 | Outpatient (CLI) | payer OTHER ==
[~2020-05-12] MED LIST changes: +ASPI-1443 PO; +GABA300C PO; +IBUP-2070 PO; +RIVA2.5T PO
== END | disposition home or self-care (01) ==
LOC: WHH 10:15
PROVIDERS: ATTEND Podiatrist Foot & Ankle Surgery
DX: T87.89 Other complications of amputation stump (principal); E11.621 Type 2 diabetes mellitus with foot ulcer; I70.235 Atherosclerosis of native arteries of right leg with ulceration of other part of foot; I83.015 Varicose veins of right lower extremity with ulcer other part of foot; L97.512 Non-pressure chronic ulcer of other part of right foot with fat layer exposed; E11.52 Type 2 diabetes mellitus with diabetic peripheral angiopathy with gangrene; I96 Gangrene, not elsewhere classified; E11.22 Type 2 diabetes mellitus with diabetic chronic kidney disease; I12.9 Hypertensive chronic kidney disease with stage 1 through stage 4 chronic kidney disease, or unspecified chronic kidney disease; N18.3 Chronic kidney disease, stage 3 (moderate); E11.43 Type 2 diabetes mellitus with diabetic autonomic (poly)neuropathy; K31.84 Gastroparesis; E11.69 Type 2 diabetes mellitus with other specified complication; M86.671 Other chronic osteomyelitis, right ankle and foot; E78.5 Hyperlipidemia, unspecified; Z98.49 Cataract extraction status, unspecified eye; Z86.73 Personal history of transient ischemic attack (TIA), and cerebral infarction without residual deficits; Y83.5 Amputation of limb(s) as the cause of abnormal reaction of the patient, or of later complication, without mention of misadventure at the time of the procedure
CPT/HCPCS: G0463

== ENCOUNTER → 2020-07-07 | Outpatient (CLI) | payer OTHER ==
[~2020-07-07] MED LIST changes: -ATOR10TA69 PO; +FENTANYL CITRATE PF 50 MCG/1 ML 2ML VIAL ONE; -INSU100I21 SQ; -LEVO500T2 PO; +MIDAZOLAM HCL 1 MG/ML 2ML VIAL ONE; -TRAM50TA4 PO
== END | disposition home or self-care (01) ==
LOC: WHH 09:30
PROVIDERS: ATTEND Podiatrist Foot & Ankle Surgery
DX: T87.89 Other complications of amputation stump (principal); E11.621 Type 2 diabetes mellitus with foot ulcer; I70.235 Atherosclerosis of native arteries of right leg with ulceration of other part of foot; I83.015 Varicose veins of right lower extremity with ulcer other part of foot; L97.512 Non-pressure chronic ulcer of other part of right foot with fat layer exposed; E11.52 Type 2 diabetes mellitus with diabetic peripheral angiopathy with gangrene; I96 Gangrene, not elsewhere classified; E11.22 Type 2 diabetes mellitus with diabetic chronic kidney disease; I12.9 Hypertensive chronic kidney disease with stage 1 through stage 4 chronic kidney disease, or unspecified chronic kidney disease; N18.30 Chronic kidney disease, stage 3 unspecified; E11.43 Type 2 diabetes mellitus with diabetic autonomic (poly)neuropathy; K31.84 Gastroparesis; E11.69 Type 2 diabetes mellitus with other specified complication; M86.671 Other chronic osteomyelitis, right ankle and foot; E78.5 Hyperlipidemia, unspecified; Z98.49 Cataract extraction status, unspecified eye; Z86.73 Personal history of transient ischemic attack (TIA), and cerebral infarction without residual deficits; Y83.5 Amputation of limb(s) as the cause of abnormal reaction of the patient, or of later complication, without mention of misadventure at the time of the procedure
CPT/HCPCS: 11042; 11045; A6209

== ENCOUNTER → 2020-07-14 | Outpatient (CLI) | payer OTHER ==
[~2020-07-14] MED LIST changes: -FENTANYL CITRATE PF 50 MCG/1 ML 2ML VIAL ONE; +LIDOCAINE HCL 2% JELLY 5 ML TP ONE; -MIDAZOLAM HCL 1 MG/ML 2ML VIAL ONE
== END | disposition home or self-care (01) ==
LOC: WHH 09:45
PROVIDERS: ATTEND Podiatrist Foot & Ankle Surgery
DX: T87.89 Other complications of amputation stump (principal); E11.621 Type 2 diabetes mellitus with foot ulcer; I70.235 Atherosclerosis of native arteries of right leg with ulceration of other part of foot; I83.015 Varicose veins of right lower extremity with ulcer other part of foot; L97.512 Non-pressure chronic ulcer of other part of right foot with fat layer exposed; E11.52 Type 2 diabetes mellitus with diabetic peripheral angiopathy with gangrene; I96 Gangrene, not elsewhere classified; E11.22 Type 2 diabetes mellitus with diabetic chronic kidney disease; I12.9 Hypertensive chronic kidney disease with stage 1 through stage 4 chronic kidney disease, or unspecified chronic kidney disease; N18.30 Chronic kidney disease, stage 3 unspecified; E11.43 Type 2 diabetes mellitus with diabetic autonomic (poly)neuropathy; K31.84 Gastroparesis; E11.69 Type 2 diabetes mellitus with other specified complication; M86.671 Other chronic osteomyelitis, right ankle and foot; E78.5 Hyperlipidemia, unspecified; Z98.49 Cataract extraction status, unspecified eye; Z86.73 Personal history of transient ischemic attack (TIA), and cerebral infarction without residual deficits; Y83.5 Amputation of limb(s) as the cause of abnormal reaction of the patient, or of later complication, without mention of misadventure at the time of the procedure
CPT/HCPCS: A6209; G0463

== ENCOUNTER → 2020-07-21 | Outpatient (CLI) | payer OTHER | END | disposition home or self-care (01) | LOC: WHH 10:00 | PROVIDERS: ATTEND Podiatrist Foot & Ankle Surgery | DX: T87.89 Other complications of amputation stump (principal); E11.621 Type 2 diabetes mellitus with foot ulcer; I70.235 Atherosclerosis of native arteries of right leg with ulceration of other part of foot; I83.015 Varicose veins of right lower extremity with ulcer other part of foot; L97.512 Non-pressure chronic ulcer of other part of right foot with fat layer exposed; E11.52 Type 2 diabetes mellitus with diabetic peripheral angiopathy with gangrene; I96 Gangrene, not elsewhere classified; E11.22 Type 2 diabetes mellitus with diabetic chronic kidney disease; I12.9 Hypertensive chronic kidney disease with stage 1 through stage 4 chronic kidney disease, or unspecified chronic kidney disease; N18.30 Chronic kidney disease, stage 3 unspecified; E11.43 Type 2 diabetes mellitus with diabetic autonomic (poly)neuropathy; K31.84 Gastroparesis; E11.69 Type 2 diabetes mellitus with other specified complication; M86.671 Other chronic osteomyelitis, right ankle and foot; E78.5 Hyperlipidemia, unspecified; Z98.49 Cataract extraction status, unspecified eye; Z86.73 Personal history of transient ischemic attack (TIA), and cerebral infarction without residual deficits; Y83.5 Amputation of limb(s) as the cause of abnormal reaction of the patient, or of later complication, without mention of misadventure at the time of the procedure | CPT/HCPCS: 11042; 11045; A6209 ==

== ENCOUNTER → 2020-07-28 | Outpatient (CLI) | payer OTHER ==
[~2020-07-28] MED LIST changes: -LIDOCAINE HCL 2% JELLY 5 ML TP ONE
== END | disposition home or self-care (01) ==
LOC: WHH 09:57
PROVIDERS: ATTEND Podiatrist Foot & Ankle Surgery
DX: T87.89 Other complications of amputation stump (principal); E11.621 Type 2 diabetes mellitus with foot ulcer; I70.235 Atherosclerosis of native arteries of right leg with ulceration of other part of foot; I83.015 Varicose veins of right lower extremity with ulcer other part of foot; L97.512 Non-pressure chronic ulcer of other part of right foot with fat layer exposed; E11.52 Type 2 diabetes mellitus with diabetic peripheral angiopathy with gangrene; I96 Gangrene, not elsewhere classified; E11.22 Type 2 diabetes mellitus with diabetic chronic kidney disease; I12.9 Hypertensive chronic kidney disease with stage 1 through stage 4 chronic kidney disease, or unspecified chronic kidney disease; N18.30 Chronic kidney disease, stage 3 unspecified; E11.43 Type 2 diabetes mellitus with diabetic autonomic (poly)neuropathy; K31.84 Gastroparesis; E11.69 Type 2 diabetes mellitus with other specified complication; M86.671 Other chronic osteomyelitis, right ankle and foot; E78.5 Hyperlipidemia, unspecified; Z98.49 Cataract extraction status, unspecified eye; Z86.73 Personal history of transient ischemic attack (TIA), and cerebral infarction without residual deficits; Y83.5 Amputation of limb(s) as the cause of abnormal reaction of the patient, or of later complication, without mention of misadventure at the time of the procedure
CPT/HCPCS: G0463

== ENCOUNTER → 2020-08-11 | Outpatient (CLI) | payer OTHER ==
[~2020-08-11] MED LIST changes: +LIDOCAINE HCL 2% JELLY 5 ML TP ONE
== END | disposition home or self-care (01) ==
LOC: WHH 10:00
PROVIDERS: ATTEND Podiatrist Foot & Ankle Surgery
DX: T87.89 Other complications of amputation stump (principal); E11.621 Type 2 diabetes mellitus with foot ulcer; I70.235 Atherosclerosis of native arteries of right leg with ulceration of other part of foot; I83.015 Varicose veins of right lower extremity with ulcer other part of foot; L97.512 Non-pressure chronic ulcer of other part of right foot with fat layer exposed; E11.52 Type 2 diabetes mellitus with diabetic peripheral angiopathy with gangrene; I96 Gangrene, not elsewhere classified; E11.22 Type 2 diabetes mellitus with diabetic chronic kidney disease; I12.9 Hypertensive chronic kidney disease with stage 1 through stage 4 chronic kidney disease, or unspecified chronic kidney disease; N18.30 Chronic kidney disease, stage 3 unspecified; E11.43 Type 2 diabetes mellitus with diabetic autonomic (poly)neuropathy; K31.84 Gastroparesis; E11.69 Type 2 diabetes mellitus with other specified complication; M86.671 Other chronic osteomyelitis, right ankle and foot; E78.5 Hyperlipidemia, unspecified; Z98.49 Cataract extraction status, unspecified eye; Z86.73 Personal history of transient ischemic attack (TIA), and cerebral infarction without residual deficits; Y83.5 Amputation of limb(s) as the cause of abnormal reaction of the patient, or of later complication, without mention of misadventure at the time of the procedure
CPT/HCPCS: 11042; 11045; A6209

== ENCOUNTER → 2020-08-25 | Outpatient (CLI) | payer OTHER | END | disposition home or self-care (01) | LOC: WHH 10:00 | PROVIDERS: ATTEND Podiatrist Foot & Ankle Surgery | DX: T87.89 Other complications of amputation stump (principal); E11.621 Type 2 diabetes mellitus with foot ulcer; I70.235 Atherosclerosis of native arteries of right leg with ulceration of other part of foot; I83.015 Varicose veins of right lower extremity with ulcer other part of foot; L97.512 Non-pressure chronic ulcer of other part of right foot with fat layer exposed; E11.52 Type 2 diabetes mellitus with diabetic peripheral angiopathy with gangrene; I96 Gangrene, not elsewhere classified; E11.22 Type 2 diabetes mellitus with diabetic chronic kidney disease; I12.9 Hypertensive chronic kidney disease with stage 1 through stage 4 chronic kidney disease, or unspecified chronic kidney disease; N18.30 Chronic kidney disease, stage 3 unspecified; E11.43 Type 2 diabetes mellitus with diabetic autonomic (poly)neuropathy; K31.84 Gastroparesis; E11.69 Type 2 diabetes mellitus with other specified complication; M86.671 Other chronic osteomyelitis, right ankle and foot; E78.5 Hyperlipidemia, unspecified; Z98.49 Cataract extraction status, unspecified eye; Z86.73 Personal history of transient ischemic attack (TIA), and cerebral infarction without residual deficits; Y83.5 Amputation of limb(s) as the cause of abnormal reaction of the patient, or of later complication, without mention of misadventure at the time of the procedure | CPT/HCPCS: 11042; 11045; A6209 ==

== ENCOUNTER → 2020-09-08 | Outpatient (CLI) | payer OTHER ==
[~2020-09-08] MED LIST changes: -LIDOCAINE HCL 2% JELLY 5 ML TP ONE
== END | disposition home or self-care (01) ==
LOC: WHH 10:00
PROVIDERS: ATTEND Podiatrist Foot & Ankle Surgery
DX: T87.89 Other complications of amputation stump (principal); E11.621 Type 2 diabetes mellitus with foot ulcer; I70.235 Atherosclerosis of native arteries of right leg with ulceration of other part of foot; I83.015 Varicose veins of right lower extremity with ulcer other part of foot; L97.512 Non-pressure chronic ulcer of other part of right foot with fat layer exposed; E11.52 Type 2 diabetes mellitus with diabetic peripheral angiopathy with gangrene; I96 Gangrene, not elsewhere classified; E11.22 Type 2 diabetes mellitus with diabetic chronic kidney disease; I12.9 Hypertensive chronic kidney disease with stage 1 through stage 4 chronic kidney disease, or unspecified chronic kidney disease; N18.30 Chronic kidney disease, stage 3 unspecified; E11.43 Type 2 diabetes mellitus with diabetic autonomic (poly)neuropathy; K31.84 Gastroparesis; E11.69 Type 2 diabetes mellitus with other specified complication; M86.671 Other chronic osteomyelitis, right ankle and foot; E78.5 Hyperlipidemia, unspecified; Z98.49 Cataract extraction status, unspecified eye; Z86.73 Personal history of transient ischemic attack (TIA), and cerebral infarction without residual deficits; Y83.5 Amputation of limb(s) as the cause of abnormal reaction of the patient, or of later complication, without mention of misadventure at the time of the procedure
CPT/HCPCS: A6209; G0463

== ENCOUNTER → 2020-09-29 | Outpatient (CLI) | payer OTHER ==
[~2020-09-29] MED LIST changes: +LIDOCAINE HCL 2% JELLY 5 ML TP ONE
== END | disposition home or self-care (01) ==
LOC: WHH 10:00
PROVIDERS: ATTEND Podiatrist Foot & Ankle Surgery
DX: T87.89 Other complications of amputation stump (principal); E11.621 Type 2 diabetes mellitus with foot ulcer; I70.235 Atherosclerosis of native arteries of right leg with ulceration of other part of foot; I83.015 Varicose veins of right lower extremity with ulcer other part of foot; L97.512 Non-pressure chronic ulcer of other part of right foot with fat layer exposed; E11.52 Type 2 diabetes mellitus with diabetic peripheral angiopathy with gangrene; I96 Gangrene, not elsewhere classified; E11.22 Type 2 diabetes mellitus with diabetic chronic kidney disease; I12.9 Hypertensive chronic kidney disease with stage 1 through stage 4 chronic kidney disease, or unspecified chronic kidney disease; N18.30 Chronic kidney disease, stage 3 unspecified; E11.43 Type 2 diabetes mellitus with diabetic autonomic (poly)neuropathy; K31.84 Gastroparesis; E11.69 Type 2 diabetes mellitus with other specified complication; M86.671 Other chronic osteomyelitis, right ankle and foot; E78.5 Hyperlipidemia, unspecified; Z98.49 Cataract extraction status, unspecified eye; Z86.73 Personal history of transient ischemic attack (TIA), and cerebral infarction without residual deficits; Y83.5 Amputation of limb(s) as the cause of abnormal reaction of the patient, or of later complication, without mention of misadventure at the time of the procedure
CPT/HCPCS: A6207; G0463

== ENCOUNTER → 2020-10-13 | Outpatient (CLI) | payer OTHER | END | disposition home or self-care (01) | LOC: WHH 09:52 | PROVIDERS: ATTEND Podiatrist Foot & Ankle Surgery | DX: T87.89 Other complications of amputation stump (principal); E11.621 Type 2 diabetes mellitus with foot ulcer; I70.235 Atherosclerosis of native arteries of right leg with ulceration of other part of foot; I83.015 Varicose veins of right lower extremity with ulcer other part of foot; L97.512 Non-pressure chronic ulcer of other part of right foot with fat layer exposed; E11.52 Type 2 diabetes mellitus with diabetic peripheral angiopathy with gangrene; I96 Gangrene, not elsewhere classified; E11.22 Type 2 diabetes mellitus with diabetic chronic kidney disease; I12.9 Hypertensive chronic kidney disease with stage 1 through stage 4 chronic kidney disease, or unspecified chronic kidney disease; N18.30 Chronic kidney disease, stage 3 unspecified; E11.43 Type 2 diabetes mellitus with diabetic autonomic (poly)neuropathy; K31.84 Gastroparesis; E11.69 Type 2 diabetes mellitus with other specified complication; M86.671 Other chronic osteomyelitis, right ankle and foot; E78.5 Hyperlipidemia, unspecified; Z98.49 Cataract extraction status, unspecified eye; Z86.73 Personal history of transient ischemic attack (TIA), and cerebral infarction without residual deficits; Y83.5 Amputation of limb(s) as the cause of abnormal reaction of the patient, or of later complication, without mention of misadventure at the time of the procedure | CPT/HCPCS: 11042; A6207 ==

== ENCOUNTER → 2020-11-03 | Outpatient (CLI) | payer OTHER | END | disposition home or self-care (01) | LOC: WHH 10:22 | PROVIDERS: ATTEND Podiatrist Foot & Ankle Surgery | DX: T87.89 Other complications of amputation stump (principal); E11.621 Type 2 diabetes mellitus with foot ulcer; I70.235 Atherosclerosis of native arteries of right leg with ulceration of other part of foot; I83.015 Varicose veins of right lower extremity with ulcer other part of foot; L97.512 Non-pressure chronic ulcer of other part of right foot with fat layer exposed; E11.52 Type 2 diabetes mellitus with diabetic peripheral angiopathy with gangrene; I96 Gangrene, not elsewhere classified; E11.22 Type 2 diabetes mellitus with diabetic chronic kidney disease; I12.9 Hypertensive chronic kidney disease with stage 1 through stage 4 chronic kidney disease, or unspecified chronic kidney disease; N18.30 Chronic kidney disease, stage 3 unspecified; E11.43 Type 2 diabetes mellitus with diabetic autonomic (poly)neuropathy; K31.84 Gastroparesis; E11.69 Type 2 diabetes mellitus with other specified complication; M86.671 Other chronic osteomyelitis, right ankle and foot; E78.5 Hyperlipidemia, unspecified; Z98.49 Cataract extraction status, unspecified eye; Z86.73 Personal history of transient ischemic attack (TIA), and cerebral infarction without residual deficits; Y83.5 Amputation of limb(s) as the cause of abnormal reaction of the patient, or of later complication, without mention of misadventure at the time of the procedure | CPT/HCPCS: 15275; A4450; A6197; A6207; Q4133 ==

== ENCOUNTER → 2020-11-10 | Outpatient (CLI) | payer OTHER | END | disposition home or self-care (01) | LOC: WHH 09:45 | PROVIDERS: ATTEND Podiatrist Foot & Ankle Surgery | DX: T87.89 Other complications of amputation stump (principal); E11.621 Type 2 diabetes mellitus with foot ulcer; I70.235 Atherosclerosis of native arteries of right leg with ulceration of other part of foot; I83.015 Varicose veins of right lower extremity with ulcer other part of foot; L97.512 Non-pressure chronic ulcer of other part of right foot with fat layer exposed; E11.52 Type 2 diabetes mellitus with diabetic peripheral angiopathy with gangrene; I96 Gangrene, not elsewhere classified; E11.22 Type 2 diabetes mellitus with diabetic chronic kidney disease; I12.9 Hypertensive chronic kidney disease with stage 1 through stage 4 chronic kidney disease, or unspecified chronic kidney disease; N18.30 Chronic kidney disease, stage 3 unspecified; E11.43 Type 2 diabetes mellitus with diabetic autonomic (poly)neuropathy; K31.84 Gastroparesis; E11.69 Type 2 diabetes mellitus with other specified complication; M86.671 Other chronic osteomyelitis, right ankle and foot; E78.5 Hyperlipidemia, unspecified; Z98.49 Cataract extraction status, unspecified eye; Z86.73 Personal history of transient ischemic attack (TIA), and cerebral infarction without residual deficits; Y83.5 Amputation of limb(s) as the cause of abnormal reaction of the patient, or of later complication, without mention of misadventure at the time of the procedure | CPT/HCPCS: 15275; A4450; A6197; A6207; Q4133 ==

== ENCOUNTER → 2020-11-17 | Outpatient (CLI) | payer OTHER ==
[~2020-11-17] MED LIST changes: -LIDOCAINE HCL 2% JELLY 5 ML TP ONE
== END | disposition home or self-care (01) ==
LOC: WHH 09:40
PROVIDERS: ATTEND Podiatrist Foot & Ankle Surgery
DX: T87.89 Other complications of amputation stump (principal); E11.621 Type 2 diabetes mellitus with foot ulcer; I70.235 Atherosclerosis of native arteries of right leg with ulceration of other part of foot; I83.015 Varicose veins of right lower extremity with ulcer other part of foot; L97.512 Non-pressure chronic ulcer of other part of right foot with fat layer exposed; E11.52 Type 2 diabetes mellitus with diabetic peripheral angiopathy with gangrene; I96 Gangrene, not elsewhere classified; E11.22 Type 2 diabetes mellitus with diabetic chronic kidney disease; I12.9 Hypertensive chronic kidney disease with stage 1 through stage 4 chronic kidney disease, or unspecified chronic kidney disease; N18.30 Chronic kidney disease, stage 3 unspecified; E11.43 Type 2 diabetes mellitus with diabetic autonomic (poly)neuropathy; K31.84 Gastroparesis; E11.69 Type 2 diabetes mellitus with other specified complication; M86.671 Other chronic osteomyelitis, right ankle and foot; E78.5 Hyperlipidemia, unspecified; Z98.49 Cataract extraction status, unspecified eye; Z86.73 Personal history of transient ischemic attack (TIA), and cerebral infarction without residual deficits; Y83.5 Amputation of limb(s) as the cause of abnormal reaction of the patient, or of later complication, without mention of misadventure at the time of the procedure
CPT/HCPCS: 15275; A6197; A6207; Q4133

== ENCOUNTER → 2020-11-23 | Outpatient (CLI) | payer OTHER | END | disposition home or self-care (01) | LOC: WHH 10:30 | PROVIDERS: ATTEND Podiatrist Foot & Ankle Surgery | DX: T86.828 Other complications of skin graft (allograft) (autograft) (principal); E11.621 Type 2 diabetes mellitus with foot ulcer; I70.235 Atherosclerosis of native arteries of right leg with ulceration of other part of foot; I83.015 Varicose veins of right lower extremity with ulcer other part of foot; L97.512 Non-pressure chronic ulcer of other part of right foot with fat layer exposed; E11.52 Type 2 diabetes mellitus with diabetic peripheral angiopathy with gangrene; I96 Gangrene, not elsewhere classified; E11.22 Type 2 diabetes mellitus with diabetic chronic kidney disease; I12.9 Hypertensive chronic kidney disease with stage 1 through stage 4 chronic kidney disease, or unspecified chronic kidney disease; N18.30 Chronic kidney disease, stage 3 unspecified; E11.43 Type 2 diabetes mellitus with diabetic autonomic (poly)neuropathy; K31.84 Gastroparesis; E11.69 Type 2 diabetes mellitus with other specified complication; M86.671 Other chronic osteomyelitis, right ankle and foot; E78.5 Hyperlipidemia, unspecified; Z98.49 Cataract extraction status, unspecified eye; Z86.73 Personal history of transient ischemic attack (TIA), and cerebral infarction without residual deficits; Y83.2 Surgical operation with anastomosis, bypass or graft as the cause of abnormal reaction of the patient, or of later complication, without mention of misadventure at the time of the procedure | CPT/HCPCS: A6197; G0463 ==

== ENCOUNTER → 2020-12-01 | Outpatient (CLI) | payer OTHER ==
[~2020-12-01] MED LIST changes: +LIDOCAINE HCL 2% JELLY 5 ML TP ONE
== END | disposition home or self-care (01) ==
LOC: WHH 10:00
PROVIDERS: ATTEND Podiatrist Foot & Ankle Surgery
DX: T86.828 Other complications of skin graft (allograft) (autograft) (principal); E11.621 Type 2 diabetes mellitus with foot ulcer; I70.235 Atherosclerosis of native arteries of right leg with ulceration of other part of foot; I83.015 Varicose veins of right lower extremity with ulcer other part of foot; L97.512 Non-pressure chronic ulcer of other part of right foot with fat layer exposed; E11.52 Type 2 diabetes mellitus with diabetic peripheral angiopathy with gangrene; I96 Gangrene, not elsewhere classified; E11.22 Type 2 diabetes mellitus with diabetic chronic kidney disease; I12.9 Hypertensive chronic kidney disease with stage 1 through stage 4 chronic kidney disease, or unspecified chronic kidney disease; N18.30 Chronic kidney disease, stage 3 unspecified; E11.43 Type 2 diabetes mellitus with diabetic autonomic (poly)neuropathy; K31.84 Gastroparesis; E11.69 Type 2 diabetes mellitus with other specified complication; M86.671 Other chronic osteomyelitis, right ankle and foot; E78.5 Hyperlipidemia, unspecified; Z98.49 Cataract extraction status, unspecified eye; Z86.73 Personal history of transient ischemic attack (TIA), and cerebral infarction without residual deficits; Y83.2 Surgical operation with anastomosis, bypass or graft as the cause of abnormal reaction of the patient, or of later complication, without mention of misadventure at the time of the procedure
CPT/HCPCS: 15275; A6197; A6207; Q4133

== ENCOUNTER → 2020-12-08 | Outpatient (CLI) | payer OTHER | END | disposition home or self-care (01) | LOC: WHH 09:45 | PROVIDERS: ATTEND Podiatrist Foot & Ankle Surgery | DX: T86.828 Other complications of skin graft (allograft) (autograft) (principal); E11.621 Type 2 diabetes mellitus with foot ulcer; I70.235 Atherosclerosis of native arteries of right leg with ulceration of other part of foot; I83.015 Varicose veins of right lower extremity with ulcer other part of foot; L97.512 Non-pressure chronic ulcer of other part of right foot with fat layer exposed; E11.52 Type 2 diabetes mellitus with diabetic peripheral angiopathy with gangrene; I96 Gangrene, not elsewhere classified; E11.22 Type 2 diabetes mellitus with diabetic chronic kidney disease; I12.9 Hypertensive chronic kidney disease with stage 1 through stage 4 chronic kidney disease, or unspecified chronic kidney disease; N18.30 Chronic kidney disease, stage 3 unspecified; E11.43 Type 2 diabetes mellitus with diabetic autonomic (poly)neuropathy; K31.84 Gastroparesis; E11.69 Type 2 diabetes mellitus with other specified complication; M86.671 Other chronic osteomyelitis, right ankle and foot; E78.5 Hyperlipidemia, unspecified; Z98.49 Cataract extraction status, unspecified eye; Z86.73 Personal history of transient ischemic attack (TIA), and cerebral infarction without residual deficits; Y83.2 Surgical operation with anastomosis, bypass or graft as the cause of abnormal reaction of the patient, or of later complication, without mention of misadventure at the time of the procedure | CPT/HCPCS: 15275; A6197; A6207; Q4133 ==

== ENCOUNTER → 2020-12-15 | Outpatient (CLI) | payer OTHER | END | disposition home or self-care (01) | LOC: WHH 09:55 | PROVIDERS: ATTEND Podiatrist Foot & Ankle Surgery | DX: T86.828 Other complications of skin graft (allograft) (autograft) (principal); E11.621 Type 2 diabetes mellitus with foot ulcer; I70.235 Atherosclerosis of native arteries of right leg with ulceration of other part of foot; I83.015 Varicose veins of right lower extremity with ulcer other part of foot; L97.512 Non-pressure chronic ulcer of other part of right foot with fat layer exposed; E11.52 Type 2 diabetes mellitus with diabetic peripheral angiopathy with gangrene; I96 Gangrene, not elsewhere classified; E11.22 Type 2 diabetes mellitus with diabetic chronic kidney disease; I12.9 Hypertensive chronic kidney disease with stage 1 through stage 4 chronic kidney disease, or unspecified chronic kidney disease; N18.30 Chronic kidney disease, stage 3 unspecified; E11.43 Type 2 diabetes mellitus with diabetic autonomic (poly)neuropathy; K31.84 Gastroparesis; E11.69 Type 2 diabetes mellitus with other specified complication; M86.671 Other chronic osteomyelitis, right ankle and foot; E78.5 Hyperlipidemia, unspecified; Z98.49 Cataract extraction status, unspecified eye; Z86.73 Personal history of transient ischemic attack (TIA), and cerebral infarction without residual deficits; Y83.2 Surgical operation with anastomosis, bypass or graft as the cause of abnormal reaction of the patient, or of later complication, without mention of misadventure at the time of the procedure | CPT/HCPCS: 15275; A4450; A6197; A6207; Q4133 ==

== ENCOUNTER → 2020-12-22 | Outpatient (CLI) | payer OTHER | END | disposition home or self-care (01) | LOC: WHH 10:00 | PROVIDERS: ATTEND Podiatrist Foot & Ankle Surgery | DX: T86.828 Other complications of skin graft (allograft) (autograft) (principal); E11.621 Type 2 diabetes mellitus with foot ulcer; I70.235 Atherosclerosis of native arteries of right leg with ulceration of other part of foot; I83.015 Varicose veins of right lower extremity with ulcer other part of foot; L97.512 Non-pressure chronic ulcer of other part of right foot with fat layer exposed; E11.52 Type 2 diabetes mellitus with diabetic peripheral angiopathy with gangrene; I96 Gangrene, not elsewhere classified; E11.22 Type 2 diabetes mellitus with diabetic chronic kidney disease; I12.9 Hypertensive chronic kidney disease with stage 1 through stage 4 chronic kidney disease, or unspecified chronic kidney disease; N18.30 Chronic kidney disease, stage 3 unspecified; E11.43 Type 2 diabetes mellitus with diabetic autonomic (poly)neuropathy; K31.84 Gastroparesis; E11.69 Type 2 diabetes mellitus with other specified complication; M86.671 Other chronic osteomyelitis, right ankle and foot; E78.5 Hyperlipidemia, unspecified; Z98.49 Cataract extraction status, unspecified eye; Z86.73 Personal history of transient ischemic attack (TIA), and cerebral infarction without residual deficits; Y83.2 Surgical operation with anastomosis, bypass or graft as the cause of abnormal reaction of the patient, or of later complication, without mention of misadventure at the time of the procedure | CPT/HCPCS: 15275; A4450; A6197; A6207; Q4133 ==

== ENCOUNTER → 2020-12-29 | Outpatient (CLI) | payer OTHER ==
[~2020-12-29] MED LIST changes: -LIDOCAINE HCL 2% JELLY 5 ML TP ONE
== END | disposition home or self-care (01) ==
LOC: WHH 10:30
PROVIDERS: ATTEND Podiatrist Foot & Ankle Surgery
DX: T86.828 Other complications of skin graft (allograft) (autograft) (principal); E11.621 Type 2 diabetes mellitus with foot ulcer; I70.235 Atherosclerosis of native arteries of right leg with ulceration of other part of foot; I83.015 Varicose veins of right lower extremity with ulcer other part of foot; L97.512 Non-pressure chronic ulcer of other part of right foot with fat layer exposed; E11.52 Type 2 diabetes mellitus with diabetic peripheral angiopathy with gangrene; I96 Gangrene, not elsewhere classified; E11.22 Type 2 diabetes mellitus with diabetic chronic kidney disease; I12.9 Hypertensive chronic kidney disease with stage 1 through stage 4 chronic kidney disease, or unspecified chronic kidney disease; N18.30 Chronic kidney disease, stage 3 unspecified; E11.43 Type 2 diabetes mellitus with diabetic autonomic (poly)neuropathy; K31.84 Gastroparesis; E11.69 Type 2 diabetes mellitus with other specified complication; M86.671 Other chronic osteomyelitis, right ankle and foot; E78.5 Hyperlipidemia, unspecified; Z98.49 Cataract extraction status, unspecified eye; Z86.73 Personal history of transient ischemic attack (TIA), and cerebral infarction without residual deficits; Y83.2 Surgical operation with anastomosis, bypass or graft as the cause of abnormal reaction of the patient, or of later complication, without mention of misadventure at the time of the procedure
CPT/HCPCS: 15275; A6197; Q4133

== ENCOUNTER → 2021-01-05 | Outpatient (CLI) | payer OTHER | END | disposition home or self-care (01) | LOC: WHH 09:30 | PROVIDERS: ATTEND Podiatrist Foot & Ankle Surgery | DX: T86.828 Other complications of skin graft (allograft) (autograft) (principal); E11.621 Type 2 diabetes mellitus with foot ulcer; I70.235 Atherosclerosis of native arteries of right leg with ulceration of other part of foot; I83.015 Varicose veins of right lower extremity with ulcer other part of foot; L97.512 Non-pressure chronic ulcer of other part of right foot with fat layer exposed; E11.52 Type 2 diabetes mellitus with diabetic peripheral angiopathy with gangrene; I96 Gangrene, not elsewhere classified; E11.22 Type 2 diabetes mellitus with diabetic chronic kidney disease; I12.9 Hypertensive chronic kidney disease with stage 1 through stage 4 chronic kidney disease, or unspecified chronic kidney disease; N18.30 Chronic kidney disease, stage 3 unspecified; E11.43 Type 2 diabetes mellitus with diabetic autonomic (poly)neuropathy; K31.84 Gastroparesis; E11.69 Type 2 diabetes mellitus with other specified complication; M86.671 Other chronic osteomyelitis, right ankle and foot; E78.5 Hyperlipidemia, unspecified; Z98.49 Cataract extraction status, unspecified eye; Z86.73 Personal history of transient ischemic attack (TIA), and cerebral infarction without residual deficits; Y83.2 Surgical operation with anastomosis, bypass or graft as the cause of abnormal reaction of the patient, or of later complication, without mention of misadventure at the time of the procedure | CPT/HCPCS: 15275; A6197; A6207; Q4133 ==

== ENCOUNTER → 2021-01-12 | Outpatient (CLI) | payer OTHER | END | disposition home or self-care (01) | LOC: WHH 10:45 | PROVIDERS: ATTEND Podiatrist Foot & Ankle Surgery | DX: T86.828 Other complications of skin graft (allograft) (autograft) (principal); E11.621 Type 2 diabetes mellitus with foot ulcer; I70.235 Atherosclerosis of native arteries of right leg with ulceration of other part of foot; I83.015 Varicose veins of right lower extremity with ulcer other part of foot; L97.512 Non-pressure chronic ulcer of other part of right foot with fat layer exposed; E11.52 Type 2 diabetes mellitus with diabetic peripheral angiopathy with gangrene; I96 Gangrene, not elsewhere classified; E11.22 Type 2 diabetes mellitus with diabetic chronic kidney disease; I12.9 Hypertensive chronic kidney disease with stage 1 through stage 4 chronic kidney disease, or unspecified chronic kidney disease; N18.30 Chronic kidney disease, stage 3 unspecified; E11.43 Type 2 diabetes mellitus with diabetic autonomic (poly)neuropathy; K31.84 Gastroparesis; E11.69 Type 2 diabetes mellitus with other specified complication; M86.671 Other chronic osteomyelitis, right ankle and foot; E78.5 Hyperlipidemia, unspecified; Z98.49 Cataract extraction status, unspecified eye; Z86.73 Personal history of transient ischemic attack (TIA), and cerebral infarction without residual deficits; Y83.2 Surgical operation with anastomosis, bypass or graft as the cause of abnormal reaction of the patient, or of later complication, without mention of misadventure at the time of the procedure | CPT/HCPCS: 15275; A4450; A6209; Q4133 ==

== ENCOUNTER → 2021-01-19 | Outpatient (CLI) | payer OTHER | END | disposition home or self-care (01) | LOC: WHH 10:18 | PROVIDERS: ATTEND Podiatrist Foot & Ankle Surgery | DX: T86.828 Other complications of skin graft (allograft) (autograft) (principal); E11.621 Type 2 diabetes mellitus with foot ulcer; I70.235 Atherosclerosis of native arteries of right leg with ulceration of other part of foot; I83.015 Varicose veins of right lower extremity with ulcer other part of foot; L97.512 Non-pressure chronic ulcer of other part of right foot with fat layer exposed; E11.52 Type 2 diabetes mellitus with diabetic peripheral angiopathy with gangrene; I96 Gangrene, not elsewhere classified; E11.22 Type 2 diabetes mellitus with diabetic chronic kidney disease; I12.9 Hypertensive chronic kidney disease with stage 1 through stage 4 chronic kidney disease, or unspecified chronic kidney disease; N18.30 Chronic kidney disease, stage 3 unspecified; E11.43 Type 2 diabetes mellitus with diabetic autonomic (poly)neuropathy; K31.84 Gastroparesis; E11.69 Type 2 diabetes mellitus with other specified complication; M86.671 Other chronic osteomyelitis, right ankle and foot; E78.5 Hyperlipidemia, unspecified; Z98.49 Cataract extraction status, unspecified eye; Z86.73 Personal history of transient ischemic attack (TIA), and cerebral infarction without residual deficits; Y83.2 Surgical operation with anastomosis, bypass or graft as the cause of abnormal reaction of the patient, or of later complication, without mention of misadventure at the time of the procedure | CPT/HCPCS: A4649; G0463 ==

== ENCOUNTER → 2021-02-02 | Outpatient (CLI) | payer OTHER | END | disposition home or self-care (01) | LOC: WHH 10:00 | PROVIDERS: ATTEND Podiatrist Foot & Ankle Surgery | DX: T87.89 Other complications of amputation stump (principal); E11.621 Type 2 diabetes mellitus with foot ulcer; I70.235 Atherosclerosis of native arteries of right leg with ulceration of other part of foot; I83.015 Varicose veins of right lower extremity with ulcer other part of foot; L97.512 Non-pressure chronic ulcer of other part of right foot with fat layer exposed; E11.52 Type 2 diabetes mellitus with diabetic peripheral angiopathy with gangrene; I96 Gangrene, not elsewhere classified; E11.22 Type 2 diabetes mellitus with diabetic chronic kidney disease; I12.9 Hypertensive chronic kidney disease with stage 1 through stage 4 chronic kidney disease, or unspecified chronic kidney disease; N18.30 Chronic kidney disease, stage 3 unspecified; E11.43 Type 2 diabetes mellitus with diabetic autonomic (poly)neuropathy; K31.84 Gastroparesis; E11.69 Type 2 diabetes mellitus with other specified complication; M86.671 Other chronic osteomyelitis, right ankle and foot; E78.5 Hyperlipidemia, unspecified; Z98.49 Cataract extraction status, unspecified eye; Z86.73 Personal history of transient ischemic attack (TIA), and cerebral infarction without residual deficits; Y83.5 Amputation of limb(s) as the cause of abnormal reaction of the patient, or of later complication, without mention of misadventure at the time of the procedure | CPT/HCPCS: A6209; G0463 ==

== ENCOUNTER → 2021-02-04 | Outpatient (CLI) | payer OTHER | END | disposition home or self-care (01) | LOC: RAH 10:12 | PROVIDERS: ATTEND Family Medicine | DX: R42 Dizziness and giddiness (principal); R55 Syncope and collapse | CPT/HCPCS: 93880 ==

== ENCOUNTER → 2021-02-09 | Outpatient (CLI) | payer OTHER ==
[~2021-02-09] MED LIST changes: +LIDOCAINE HCL 4% LTA SOL 4 ML VIAL TP ONE
== END | disposition home or self-care (01) ==
LOC: WHH 10:22
PROVIDERS: ATTEND Podiatrist Foot & Ankle Surgery
DX: T87.89 Other complications of amputation stump (principal); E11.621 Type 2 diabetes mellitus with foot ulcer; I70.235 Atherosclerosis of native arteries of right leg with ulceration of other part of foot; I83.015 Varicose veins of right lower extremity with ulcer other part of foot; L97.512 Non-pressure chronic ulcer of other part of right foot with fat layer exposed; E11.52 Type 2 diabetes mellitus with diabetic peripheral angiopathy with gangrene; I96 Gangrene, not elsewhere classified; E11.22 Type 2 diabetes mellitus with diabetic chronic kidney disease; I12.9 Hypertensive chronic kidney disease with stage 1 through stage 4 chronic kidney disease, or unspecified chronic kidney disease; N18.30 Chronic kidney disease, stage 3 unspecified; E11.43 Type 2 diabetes mellitus with diabetic autonomic (poly)neuropathy; K31.84 Gastroparesis; E11.69 Type 2 diabetes mellitus with other specified complication; M86.671 Other chronic osteomyelitis, right ankle and foot; E78.5 Hyperlipidemia, unspecified; Z98.49 Cataract extraction status, unspecified eye; Z86.73 Personal history of transient ischemic attack (TIA), and cerebral infarction without residual deficits; Y83.5 Amputation of limb(s) as the cause of abnormal reaction of the patient, or of later complication, without mention of misadventure at the time of the procedure
CPT/HCPCS: A4450; A6022; A6209; G0463

== ENCOUNTER → 2021-02-16 | Outpatient (CLI) | payer OTHER | END | disposition home or self-care (01) | LOC: WHH 09:55 | PROVIDERS: ATTEND Podiatrist Foot & Ankle Surgery | DX: T87.89 Other complications of amputation stump (principal); E11.621 Type 2 diabetes mellitus with foot ulcer; I70.235 Atherosclerosis of native arteries of right leg with ulceration of other part of foot; I83.015 Varicose veins of right lower extremity with ulcer other part of foot; L97.512 Non-pressure chronic ulcer of other part of right foot with fat layer exposed; E11.52 Type 2 diabetes mellitus with diabetic peripheral angiopathy with gangrene; I96 Gangrene, not elsewhere classified; E11.22 Type 2 diabetes mellitus with diabetic chronic kidney disease; I12.9 Hypertensive chronic kidney disease with stage 1 through stage 4 chronic kidney disease, or unspecified chronic kidney disease; N18.30 Chronic kidney disease, stage 3 unspecified; E11.43 Type 2 diabetes mellitus with diabetic autonomic (poly)neuropathy; K31.84 Gastroparesis; E11.69 Type 2 diabetes mellitus with other specified complication; M86.671 Other chronic osteomyelitis, right ankle and foot; E78.5 Hyperlipidemia, unspecified; Z98.49 Cataract extraction status, unspecified eye; Z86.73 Personal history of transient ischemic attack (TIA), and cerebral infarction without residual deficits; Y83.5 Amputation of limb(s) as the cause of abnormal reaction of the patient, or of later complication, without mention of misadventure at the time of the procedure | CPT/HCPCS: A6022; G0463 ==

== ENCOUNTER → 2021-02-23 | Outpatient (CLI) | payer OTHER | END | disposition home or self-care (01) | LOC: WHH 10:25 | PROVIDERS: ATTEND Podiatrist Foot & Ankle Surgery | DX: T87.89 Other complications of amputation stump (principal); E11.621 Type 2 diabetes mellitus with foot ulcer; I70.235 Atherosclerosis of native arteries of right leg with ulceration of other part of foot; I83.015 Varicose veins of right lower extremity with ulcer other part of foot; L97.512 Non-pressure chronic ulcer of other part of right foot with fat layer exposed; E11.52 Type 2 diabetes mellitus with diabetic peripheral angiopathy with gangrene; I96 Gangrene, not elsewhere classified; E11.22 Type 2 diabetes mellitus with diabetic chronic kidney disease; I12.9 Hypertensive chronic kidney disease with stage 1 through stage 4 chronic kidney disease, or unspecified chronic kidney disease; N18.30 Chronic kidney disease, stage 3 unspecified; E11.43 Type 2 diabetes mellitus with diabetic autonomic (poly)neuropathy; K31.84 Gastroparesis; E11.69 Type 2 diabetes mellitus with other specified complication; M86.671 Other chronic osteomyelitis, right ankle and foot; E78.5 Hyperlipidemia, unspecified; Z98.49 Cataract extraction status, unspecified eye; Z86.73 Personal history of transient ischemic attack (TIA), and cerebral infarction without residual deficits; Y83.5 Amputation of limb(s) as the cause of abnormal reaction of the patient, or of later complication, without mention of misadventure at the time of the procedure | CPT/HCPCS: A4649; G0463 ==

== ENCOUNTER → 2021-03-02 | Outpatient (CLI) | payer OTHER | END | disposition home or self-care (01) | LOC: WHH 10:07 | PROVIDERS: ATTEND Podiatrist Foot & Ankle Surgery | DX: T87.89 Other complications of amputation stump (principal); E11.621 Type 2 diabetes mellitus with foot ulcer; I70.235 Atherosclerosis of native arteries of right leg with ulceration of other part of foot; I83.015 Varicose veins of right lower extremity with ulcer other part of foot; L97.512 Non-pressure chronic ulcer of other part of right foot with fat layer exposed; E11.52 Type 2 diabetes mellitus with diabetic peripheral angiopathy with gangrene; I96 Gangrene, not elsewhere classified; E11.22 Type 2 diabetes mellitus with diabetic chronic kidney disease; I12.9 Hypertensive chronic kidney disease with stage 1 through stage 4 chronic kidney disease, or unspecified chronic kidney disease; N18.30 Chronic kidney disease, stage 3 unspecified; E11.43 Type 2 diabetes mellitus with diabetic autonomic (poly)neuropathy; K31.84 Gastroparesis; E11.69 Type 2 diabetes mellitus with other specified complication; M86.671 Other chronic osteomyelitis, right ankle and foot; E78.5 Hyperlipidemia, unspecified; Z98.49 Cataract extraction status, unspecified eye; Z86.73 Personal history of transient ischemic attack (TIA), and cerebral infarction without residual deficits; Y83.5 Amputation of limb(s) as the cause of abnormal reaction of the patient, or of later complication, without mention of misadventure at the time of the procedure | CPT/HCPCS: A4649; G0463 ==

== ENCOUNTER → 2021-03-09 | Outpatient (CLI) | payer OTHER ==
[~2021-03-09] MED LIST changes: -LIDOCAINE HCL 4% LTA SOL 4 ML VIAL TP ONE
== END | disposition home or self-care (01) ==
LOC: WHH 10:19
PROVIDERS: ATTEND Podiatrist Foot & Ankle Surgery
DX: T87.89 Other complications of amputation stump (principal); E11.621 Type 2 diabetes mellitus with foot ulcer; I70.235 Atherosclerosis of native arteries of right leg with ulceration of other part of foot; I83.015 Varicose veins of right lower extremity with ulcer other part of foot; L97.512 Non-pressure chronic ulcer of other part of right foot with fat layer exposed; E11.52 Type 2 diabetes mellitus with diabetic peripheral angiopathy with gangrene; I96 Gangrene, not elsewhere classified; E11.22 Type 2 diabetes mellitus with diabetic chronic kidney disease; I12.9 Hypertensive chronic kidney disease with stage 1 through stage 4 chronic kidney disease, or unspecified chronic kidney disease; N18.30 Chronic kidney disease, stage 3 unspecified; E11.43 Type 2 diabetes mellitus with diabetic autonomic (poly)neuropathy; K31.84 Gastroparesis; E11.69 Type 2 diabetes mellitus with other specified complication; M86.671 Other chronic osteomyelitis, right ankle and foot; E78.5 Hyperlipidemia, unspecified; Z98.49 Cataract extraction status, unspecified eye; Z86.73 Personal history of transient ischemic attack (TIA), and cerebral infarction without residual deficits; Y83.5 Amputation of limb(s) as the cause of abnormal reaction of the patient, or of later complication, without mention of misadventure at the time of the procedure
CPT/HCPCS: G0463

== ENCOUNTER → 2021-03-16 | Outpatient (CLI) | payer OTHER ==
[~2021-03-16] MED LIST changes: +LIDOCAINE HCL 4% LTA SOL 4 ML VIAL TP ONE
== END | disposition home or self-care (01) ==
LOC: WHH 10:10
PROVIDERS: ATTEND Podiatrist Foot & Ankle Surgery
DX: T87.89 Other complications of amputation stump (principal); E11.621 Type 2 diabetes mellitus with foot ulcer; I70.235 Atherosclerosis of native arteries of right leg with ulceration of other part of foot; I83.015 Varicose veins of right lower extremity with ulcer other part of foot; L97.512 Non-pressure chronic ulcer of other part of right foot with fat layer exposed; E11.52 Type 2 diabetes mellitus with diabetic peripheral angiopathy with gangrene; I96 Gangrene, not elsewhere classified; E11.22 Type 2 diabetes mellitus with diabetic chronic kidney disease; I12.9 Hypertensive chronic kidney disease with stage 1 through stage 4 chronic kidney disease, or unspecified chronic kidney disease; N18.30 Chronic kidney disease, stage 3 unspecified; E11.43 Type 2 diabetes mellitus with diabetic autonomic (poly)neuropathy; K31.84 Gastroparesis; E11.69 Type 2 diabetes mellitus with other specified complication; M86.671 Other chronic osteomyelitis, right ankle and foot; E78.5 Hyperlipidemia, unspecified; Z98.49 Cataract extraction status, unspecified eye; Z86.73 Personal history of transient ischemic attack (TIA), and cerebral infarction without residual deficits; Y83.5 Amputation of limb(s) as the cause of abnormal reaction of the patient, or of later complication, without mention of misadventure at the time of the procedure
CPT/HCPCS: A4450; G0463

== ENCOUNTER → 2021-03-23 | Outpatient (CLI) | payer OTHER ==
[~2021-03-23] MED LIST changes: -LIDOCAINE HCL 4% LTA SOL 4 ML VIAL TP ONE
== END | disposition home or self-care (01) ==
LOC: WHH 11:07
PROVIDERS: ATTEND Podiatrist Foot & Ankle Surgery
DX: T87.89 Other complications of amputation stump (principal); E11.621 Type 2 diabetes mellitus with foot ulcer; I70.235 Atherosclerosis of native arteries of right leg with ulceration of other part of foot; I83.015 Varicose veins of right lower extremity with ulcer other part of foot; L97.518 Non-pressure chronic ulcer of other part of right foot with other specified severity; E11.52 Type 2 diabetes mellitus with diabetic peripheral angiopathy with gangrene; I96 Gangrene, not elsewhere classified; E11.22 Type 2 diabetes mellitus with diabetic chronic kidney disease; I12.9 Hypertensive chronic kidney disease with stage 1 through stage 4 chronic kidney disease, or unspecified chronic kidney disease; N18.30 Chronic kidney disease, stage 3 unspecified; E11.43 Type 2 diabetes mellitus with diabetic autonomic (poly)neuropathy; K31.84 Gastroparesis; E11.69 Type 2 diabetes mellitus with other specified complication; M86.671 Other chronic osteomyelitis, right ankle and foot; E78.5 Hyperlipidemia, unspecified; Z98.49 Cataract extraction status, unspecified eye; Z86.73 Personal history of transient ischemic attack (TIA), and cerebral infarction without residual deficits; Y83.5 Amputation of limb(s) as the cause of abnormal reaction of the patient, or of later complication, without mention of misadventure at the time of the procedure
CPT/HCPCS: G0463

== ENCOUNTER 2021-05-21 11:29 | Inpatient (IN) | payer OTHER ==
[~2021-05-21] VITALS: Ht 157.5 cm; Wt 73.8 kg
[2021-05-21 12:06] LABS: BASOPHILS % (AUTO) 0.8 % (0.0-5.0); EOSINOPHILS % (AUTO) 7.6 % (0.0-8.0); LYMPHOCYTES % (AUTO) 32.1 % (21.0-51.0); MEAN CORPUSCULAR HEMOGLOBIN 30.7 pg (27.0-33.0); MEAN CORPUSCULAR HGB CONC 32.4 g/dL (32.0-36.0); MEAN CORPUSCULAR VOLUME 94.8 fL (79-99); MONOCYTES % (AUTO) 8.7 % (3.0-13.0); NEUTROPHILS % (AUTO) 50.6 % (40.0-77.0); PLATELET COUNT (AUTO) 192 K/uL (130-400); RED BLOOD CELL COUNT(AUTO) 3.48 MIL/uL (4.00-5.50); RED CELL DISTRIBUTION WIDTH 13.1 % (11.0-15.5); WHITE BLOOD COUNT (AUTO) 5.3 K/uL (4.8-10.8)
[2021-05-21 12:21] LABS: INR 1.11 (0.85-1.15)
[2021-05-21 12:23] LABS: PARTIAL THROMBOPLASTIN TIME 31.9 SEC (26.3-35.5)
[2021-05-21 12:26] LABS: ALBUMIN 3.3 g/dL (3.5-5.0); BILIRUBIN,TOTAL 0.3 mg/dL (0.2-1.0); CREATININE 0.9 mg/dL (0.5-1.5); POTASSIUM 4.6 mmol/L (3.5-5.1); TOTAL PROTEIN, SERUM 7.6 g/dL (6.0-8.3)
[2021-05-21] MEDS ORDERED: MEROPENEM 1 GM VIAL IVP SCH (13:30)
[2021-05-21] MEDS ORDERED: CLINDAMYCIN IVPB 600MG/50ML 50 ML IV SCH (13:30)
[2021-05-21] MEDS ORDERED: ONDANSETRON 4MG INJ IVP PRN (14:00)
[2021-05-21] MEDS ORDERED: VANCOMYCIN PROTOCOL PER PHARMACY IV SCH (14:00)
[2021-05-21] MEDS ORDERED: TEMAZEPAM 15 MG CAPSULE PO PRN (14:00)
[2021-05-21] MEDS ORDERED: LACTULOSE 20 GM/30 ML UDCUP PO PRN (14:00)
[2021-05-21] MEDS ORDERED: LACTATED RINGERS 1000ML 1,000 ML IV ONE (14:00)
[2021-05-21] MEDS ORDERED: MORPHINE 2 MG SYG IVP PRN (14:00)
[2021-05-21] MEDS ORDERED: ACETAMINOPHEN 650 MG SUPPOSITORY RC PRN (14:00)
[2021-05-21] MEDS ORDERED: VANCOMYCIN 1G VIAL IVPB ONE (14:00)
[2021-05-21] MEDS ORDERED: ACETAMINOPHEN 325 MG TAB PO PRN (14:00)
[2021-05-21] MEDS ORDERED: 0.9% NACL 250ML 250 ML IV SCH (14:06)
[2021-05-21] MEDS: MEROPENEM 1 GM VIAL IVP SCH (14:21)
[2021-05-21] MEDS ORDERED: VANCOMYCIN KIT 1 GM/250 ML IV.KIT IV SCH (14:30)
[2021-05-21] MEDS: LACTATED RINGERS 1000ML 1,000 ML IV SCH ×2 (15:12→22:00)
[2021-05-21] MEDS: INSULIN HUMULIN R 100 UNIT/ML 3ML SQ SCH ×2 (16:30→20:39)
[2021-05-21 20:02] VITALS: BP 127/41
[2021-05-21] MEDS ORDERED: ENOXAPARIN SODIUM 40 MG/0.4 ML SYRINGE SQ SCH (23:00)
[2021-05-22] VITALS (7 sets, daily range): BP systolic 100–126; BP diastolic 44–65
[2021-05-22] MEDS: ENOXAPARIN SODIUM 80 MG/0.8 ML SQ SCH ×3 (00:58→20:30)
[2021-05-22] MEDS: MEROPENEM 1 GM VIAL IVP SCH ×2 (01:51→13:52)
[2021-05-22] MEDS: LACTATED RINGERS 1000ML 1,000 ML IV SCH ×3 (01:53→13:52)
[2021-05-22 02:32] LABS: BASOPHILS % (AUTO) 0.8 % (0.0-5.0); EOSINOPHILS % (AUTO) 8.5 % (0.0-8.0); HEMATOCRIT 28.1 % (36-48); LYMPHOCYTES % (AUTO) 35.9 % (21.0-51.0); MEAN CORPUSCULAR HEMOGLOBIN 31.1 pg (27.0-33.0); MEAN CORPUSCULAR HGB CONC 33.1 g/dL (32.0-36.0); MONOCYTES % (AUTO) 8.5 % (3.0-13.0); NEUTROPHILS % (AUTO) 46.1 % (40.0-77.0); PLATELET COUNT (AUTO) 175 K/uL (130-400); RED BLOOD CELL COUNT(AUTO) 2.99 MIL/uL (4.00-5.50); RED CELL DISTRIBUTION WIDTH 13.1 % (11.0-15.5); WHITE BLOOD COUNT (AUTO) 5.2 K/uL (4.8-10.8)
[2021-05-22 02:43] LABS: HEMOGLOBIN A1C 8.9 % (4.0-6.0)
[2021-05-22 02:45] LABS: CREATININE 0.9 mg/dL (0.5-1.5); MAGNESIUM 1.5 mg/dL (1.80-2.40); PHOSPHORUS 3.2 mg/dL (2.5-4.9); POTASSIUM 4.1 mmol/L (3.5-5.1)
[2021-05-22] MEDS: INSULIN HUMULIN R 100 UNIT/ML 3ML SQ SCH ×4 (06:17→20:38)
[2021-05-22] MEDS ORDERED: MAGNESIUM 2GM PREMIX 50ML 50 ML IV PRN ×2 (06:30→09:00)
[2021-05-22] MEDS ORDERED: IOHEXOL 350 MG/ML 100ML INFUS..BTL IV ONE (06:44)
[2021-05-22] MEDS: ASPIRIN 81 MG EC TAB PO SCH (08:32)
[2021-05-22] MEDS: POLYETHYLENE GLYCOL 3350 17 GM POWD.PACK PO SCH (08:32)
[2021-05-22] MEDS: LOSARTAN 50 MG TABLET PO SCH (08:32)
[2021-05-22] MEDS: VANCOMYCIN KIT 1 GM/250 ML IV.KIT IV SCH (08:32)
[2021-05-22] MEDS: PIOGLITAZONE 45MG TAB PO SCH (08:32)
[2021-05-22] MEDS ORDERED: POTASSIUM CHLORIDE 20MEQ/100ML 100 ML IV PRN (09:00)
[2021-05-22] MEDS ORDERED: ASPIRIN 81MG CHEW TAB PO SCH (09:00)
[2021-05-22] MEDS ORDERED: POTASSIUM CHLORIDE 10% ELIXIR 20 MEQ/15 ML UDCUP PO PRN (09:00)
[2021-05-22] MEDS ORDERED: KCL 20 MEQ ERTAB PO PRN (09:00)
[2021-05-22] MEDS ORDERED: ENOXAPARIN SODIUM 40 MG/0.4 ML SYRINGE SQ SCH (09:00)
[2021-05-22] MEDS ORDERED: GLUCAGON 1MG KIT 1 MG ML IM PRN (09:00)
[2021-05-22] MEDS ORDERED: DEXTROSE 50%-WATER 50 ML DISP.SYRIN IV PRN (09:00)
[2021-05-22] MEDS ORDERED: LIDOCAINE HCL-MPF 1% 2ML VIAL IV PRN (09:00)
[2021-05-22] MEDS ORDERED: GABAPENTIN 300 MG CAPSULE PO SCH ×2 (14:00→21:00)
[2021-05-22] MEDS: GABAPENTIN 300 MG CAPSULE PO SCH (20:30)
[2021-05-23] VITALS: BP 92/48
[2021-05-23] MEDS: MEROPENEM 1 GM VIAL IVP SCH ×2 (01:30→13:57)
[2021-05-23 04:00] VITALS: BP 115/53
[2021-05-23] MEDS: INSULIN HUMULIN R 100 UNIT/ML 3ML SQ SCH ×4 (06:05→22:04)
[2021-05-23 08:00] VITALS: BP 118/72
[2021-05-23 08:32] LABS: HEMATOCRIT 31.1 % (36-48); MEAN CORPUSCULAR HGB CONC 32.5 g/dL (32.0-36.0); MEAN CORPUSCULAR VOLUME 95.4 fL (79-99); RED BLOOD CELL COUNT(AUTO) 3.26 MIL/uL (4.00-5.50); RED CELL DISTRIBUTION WIDTH 13.2 % (11.0-15.5); WHITE BLOOD COUNT (AUTO) 6.5 K/uL (4.8-10.8)
[2021-05-23 08:54] LABS: CREATININE 0.7 mg/dL (0.5-1.5)
[2021-05-23] MEDS: POLYETHYLENE GLYCOL 3350 17 GM POWD.PACK PO SCH (09:26)
[2021-05-23] MEDS: ENOXAPARIN SODIUM 80 MG/0.8 ML SQ SCH ×2 (09:26→20:21)
[2021-05-23] MEDS: GABAPENTIN 300 MG CAPSULE PO SCH ×2 (09:27→20:19)
[2021-05-23] MEDS: LOSARTAN 50 MG TABLET PO SCH (09:27)
[2021-05-23] MEDS: PIOGLITAZONE 45MG TAB PO SCH (09:27)
[2021-05-23] MEDS: ASPIRIN 81 MG EC TAB PO SCH (09:27)
[2021-05-23] MEDS: VANCOMYCIN KIT 1 GM/250 ML IV.KIT IV SCH (09:32)
[2021-05-23 12:00] VITALS: BP 119/54
[2021-05-23 16:08] VITALS: BP 134/65
[2021-05-23] MEDS ORDERED: DIPHENHYDRAMINE 2% CREAM 30 GM TP PRN (18:30)
[2021-05-23 20:15] VITALS: BP 107/50
[2021-05-23] MEDS: VANCOMYCIN 500MG+NS 100ML IVPB IV SCH (20:18)
[2021-05-24] VITALS (7 sets, daily range): BP systolic 93–153; BP diastolic 45–63
[2021-05-24] MEDS: MEROPENEM 1 GM VIAL IVP SCH ×2 (01:32→14:09)
[2021-05-24] MEDS: INSULIN HUMULIN R 100 UNIT/ML 3ML SQ SCH ×5 (07:09→20:25)
[2021-05-24] MEDS: POLYETHYLENE GLYCOL 3350 17 GM POWD.PACK PO SCH (08:35)
[2021-05-24] MEDS: PIOGLITAZONE 45MG TAB PO SCH (08:35)
[2021-05-24] MEDS: GABAPENTIN 300 MG CAPSULE PO SCH ×2 (08:35→20:22)
[2021-05-24] MEDS: VANCOMYCIN 500MG+NS 100ML IVPB IV SCH ×2 (08:41→21:11)
[2021-05-24] MEDS ORDERED: REGADENOSON 0.4 MG/5 ML PF SYG IVP SCH (13:00)
[2021-05-24] MEDS: ASPIRIN 81 MG EC TAB PO SCH (14:09)
[2021-05-24] MEDS: ENOXAPARIN SODIUM 80 MG/0.8 ML SQ SCH ×2 (14:09→20:24)
[2021-05-24] MEDS: LOSARTAN 50 MG TABLET PO SCH (14:09)
[2021-05-24] MEDS: 0.9%NACL 100ML 100 ML IV SCH ×2 (21:09→21:11)
[2021-05-25] MEDS: MEROPENEM 1 GM VIAL IVP SCH ×2 (01:28→13:55)
[2021-05-25 03:43] VITALS: BP 109/52
[2021-05-25 04:14] LABS: HEMATOCRIT 27.2 % (36-48); MEAN CORPUSCULAR HEMOGLOBIN 30.5 pg (27.0-33.0); MEAN CORPUSCULAR VOLUME 95.4 fL (79-99); RED BLOOD CELL COUNT(AUTO) 2.85 MIL/uL (4.00-5.50); RED CELL DISTRIBUTION WIDTH 13.5 % (11.0-15.5); WHITE BLOOD COUNT (AUTO) 6.1 K/uL (4.8-10.8)
[2021-05-25 04:18] LABS: CREATININE 0.7 mg/dL (0.5-1.5); POTASSIUM 4.2 mmol/L (3.5-5.1)
[2021-05-25] MEDS: INSULIN HUMULIN R 100 UNIT/ML 3ML SQ SCH ×2 (06:00→11:30)
[2021-05-25 07:57] VITALS: BP 117/63
[2021-05-25] MEDS: POLYETHYLENE GLYCOL 3350 17 GM POWD.PACK PO SCH (09:56)
[2021-05-25] MEDS: LOSARTAN 50 MG TABLET PO SCH (09:56)
[2021-05-25] MEDS: GABAPENTIN 300 MG CAPSULE PO SCH (09:56)
[2021-05-25] MEDS: ASPIRIN 81 MG EC TAB PO SCH (09:56)
[2021-05-25] MEDS: PIOGLITAZONE 45MG TAB PO SCH (09:56)
[2021-05-25] MEDS: VANCOMYCIN 500MG+NS 100ML IVPB IV SCH (09:57)
[2021-05-25] MEDS: ENOXAPARIN SODIUM 80 MG/0.8 ML SQ SCH (09:59)
[2021-05-25 11:56] VITALS: BP 139/62
[2021-05-25] MEDS ORDERED: DOXY100C5 PO (14:32)
== END 2021-05-25 19:00 | disposition home or self-care (01) | DRG 603 ==
LOC: EDH 11:29 → EDHIP 13:43 → 4CH 05-22 01:46
PROVIDERS: ADMIT Internal Medicine; ATTEND Internal Medicine
DX: L03.116 Cellulitis of left lower limb (principal); S80.822A Blister (nonthermal), left lower leg, initial encounter; L03.115 Cellulitis of right lower limb; E78.5 Hyperlipidemia, unspecified; I10 Essential (primary) hypertension; I87.2 Venous insufficiency (chronic) (peripheral); E11.22 Type 2 diabetes mellitus with diabetic chronic kidney disease; Z20.822 Contact with and (suspected) exposure to COVID-19; I25.10 Atherosclerotic heart disease of native coronary artery without angina pectoris; E78.00 Pure hypercholesterolemia, unspecified; L29.9 Pruritus, unspecified; S80.821A Blister (nonthermal), right lower leg, initial encounter; R94.39 Abnormal result of other cardiovascular function study; E11.51 Type 2 diabetes mellitus with diabetic peripheral angiopathy without gangrene; E11.40 Type 2 diabetes mellitus with diabetic neuropathy, unspecified; Z77.22 Contact with and (suspected) exposure to environmental tobacco smoke (acute) (chronic); Y93.89 Activity, other specified; Y92.89 Other specified places as the place of occurrence of the external cause; Y99.8 Other external cause status; Z89.421 Acquired absence of other right toe(s); Z79.01 Long term (current) use of anticoagulants; Z79.4 Long term (current) use of insulin; Z82.3 Family history of stroke; Z80.0 Family history of malignant neoplasm of digestive organs
CPT/HCPCS: 36415; 71275; 73590; 78452; 80048; 80053; 80202; 82550; 82948; 83036; 83605; 83735; 83874; 84100; 84484; 85025; 85027; 85378; 85610; 85730; 86850; 86900; 86901; 87040; 87635; 93017; 93306; 93356; 93925; 96374; 97039; A9500; G0378; J1650; J1815; J2185; J2785; J3370; J3475; J3490; J7050; J7120; Q9967

== ENCOUNTER → 2023-05-02 | Outpatient (CLI) | payer OTHER ==
[~2023-05-02] MED LIST changes: +DOXY100C5 PO; -IBUP-2070 PO
== END | disposition home or self-care (01) ==
LOC: WHH 08:10
PROVIDERS: ATTEND Podiatrist Foot & Ankle Surgery
DX: E11.621 Type 2 diabetes mellitus with foot ulcer (principal); I70.235 Atherosclerosis of native arteries of right leg with ulceration of other part of foot; L97.511 Non-pressure chronic ulcer of other part of right foot limited to breakdown of skin; I70.202 Unspecified atherosclerosis of native arteries of extremities, left leg; I25.10 Atherosclerotic heart disease of native coronary artery without angina pectoris; I10 Essential (primary) hypertension; E78.00 Pure hypercholesterolemia, unspecified; E11.51 Type 2 diabetes mellitus with diabetic peripheral angiopathy without gangrene; E11.42 Type 2 diabetes mellitus with diabetic polyneuropathy; Z89.421 Acquired absence of other right toe(s); Z89.431 Acquired absence of right foot; Z79.84 Long term (current) use of oral hypoglycemic drugs; Z79.4 Long term (current) use of insulin; Z79.899 Other long term (current) drug therapy
CPT/HCPCS: G0463